=== PATIENT | female | born 1990 | race American Indian/Alaskan Native ===

== ENCOUNTER 2017-02-27 07:31 | Emergency (ER) | payer MEDICAID ==
[2017-02-27 07:39] VITALS: BP 113/71
--- NOTE | 2017-02-27 07:46 | Emergency Department Report ---
- General Chief Complaint: Upper Respiratory Infection Stated Complaint: COLD Time Seen by Provider: 02/27/17 07:44 Source: patient Mode of arrival: Ambulatory Limitations: No Limitations - History of Present Illness Initial Comments: 26-year-old female past medical history none presents with complaint of one month of runny nose, clear rhinorrhea, nasal congestion, scratchy throat, cough. This episode has gotten particularly uncomfortable this week. Patient denies fever chills no chest pain no shortness of breath no nausea no vomiting no abdominal pain reported. Patient is alert and oriented 3 not in acute distress speaking in full sentences no audible stridor no audible wheezing on clinical exam. Patient is cooperative and able to follow all commands without any difficulty. Patient states she has not taken any medicines over-the- counter to relieve her symptoms. MD Complaint: rhinorrhea, nasal congestion, sinus pain Onset/Timin -: week(s) Severity: moderate Consistency: constant Associated Symptoms: rhinorrhea, nasal congestion, sore throat, cough Treatments Prior to Arrival: none - Related Data Previous Rx's Medication Instructions Recorded Last Taken Type Azelastine 0.1% (Nf) [Astelin (Nf)] 137 mcg NS QDAY PRN #1 bottle 02/27/17 Unknown Rx Fluticasone [Flonase] 1 spray NS QDAY PRN #1 bottle 02/27/17 Unknown Rx Loratadine [Claritin] 10 mg PO DAILY #30 tablet 02/27/17 Unknown Rx Naproxen [Naproxen TAB] 250 mg PO BID PRN #20 tablet 02/27/17 Unknown Rx guaiFENesin DM [Robitussin Dm] 10 ml PO Q6HR PRN #1 bottle 02/27/17 Unknown Rx Allergies Allergy/AdvReac Type Severity Reaction Status Date / Time No Known Allergies Allergy Verified 02/27/17 07:36 ED Review of Systems ROS: Stated complaint: COLD Other details as noted in HPI Constitutional: denies: chills, fever Eyes: denies: eye pain, eye discharge, vision change ENT: throat pain, congestion. denies: ear pain Respiratory: cough. denies: shortness of breath, wheezing Cardiovascular: denies: chest pain, palpitations Endocrine: no symptoms reported Gastrointestinal: denies: abdominal pain, nausea, diarrhea Genitourinary: denies: urgency, dysuria, discharge Musculoskeletal: denies: back pain, joint swelling, arthralgia Skin: denies: rash, lesions Neurological: denies: headache, weakness, paresthesias Psychiatric: denies: anxiety, depression Hematological/Lymphatic: denies: easy bleeding, easy bruising ED Past Medical Hx - Past Medical History Previous Medical History?: No Hx Hypertension: No Hx CVA: No Hx Heart Attack/AMI: No Hx Congestive Heart Failure: No Hx Diabetes: No Hx Deep Vein Thrombosis: No Hx Pulmonary Embolism: No Hx GERD: No Hx Liver Disease: No Hx Renal Disease: No Hx Sickle Cell Disease: No Hx Arthritis: No Hx Headaches / Migraines: No Hx Seizures: No Hx Kidney Stones: No Hx Psychiatric Treatment: No Hx Asthma: No Hx COPD: No Hx Tuberculosis: No Hx Dementia: No Hx HIV: No Additional medical history: Ab1 - Surgical History Past Surgical History?: No Hx Coronary Stent: No Hx Open Heart Surgery: No Hx Pacemaker: No Hx Internal Defibrillator: No Hx Cholecystectomy: No Hx Appendectomy: No Hx Breast Surgery: No - Social History Smoking Status: Current Some Day Smoker Substance Use Type: None - Medications Home Medications: Home Medications Medication Instructions Recorded Confirmed Last Taken Type Azelastine 0.1% (Nf) [Astelin (Nf)] 137 mcg NS QDAY PRN #1 bottle 02/27/17 Unknown Rx Fluticasone [Flonase] 1 spray NS QDAY PRN #1 bottle 02/27/17 Unknown Rx Loratadine [Claritin] 10 mg PO DAILY #30 tablet 02/27/17 Unknown Rx Naproxen [Naproxen TAB] 250 mg PO BID PRN #20 tablet 02/27/17 Unknown Rx guaiFENesin DM [Robitussin Dm] 10 ml PO Q6HR PRN #1 bottle 02/27/17 Unknown Rx ED Physical Exam - General Limitations: No Limitations General appearance: alert, in no apparent distress - Head Head exam: Present: atraumatic, normocephalic - Eye Eye exam: Present: normal appearance, PERRL, EOMI - ENT ENT exam: Present: mucous membranes moist - Neck Neck exam: Present: normal inspection - Respiratory Respiratory exam: Present: normal lung sounds bilaterally, other (nasal turbinates injected. ). Absent: respiratory distress - Cardiovascular Cardiovascular Exam: Present: regular rate, normal rhythm, normal heart sounds. Absent: systolic murmur, diastolic murmur, rubs, gallop - GI/Abdominal GI/Abdominal exam: Present: soft, normal bowel sounds - Extremities Exam Extremities exam: Present: normal inspection - Back Exam Back exam: Present: normal inspection - Neurological Exam Neurological exam: Present: alert, oriented X3, CN II-XII intact, normal gait - Psychiatric Psychiatric exam: Present: normal affect, normal mood - Skin Skin exam: Present: warm, dry, intact, normal color. Absent: rash ED Course Vital Signs 02/27/17 02/27/17 07:33 08:02 Temperature 97.5 F L Pulse Rate 78 Respiratory 17 18 Rate Blood Pressure 113/71 O2 Sat by Pulse 100 Oximetry ED Medical Decision Making - Medical Decision Making A/P: Allergic rhinitis vs. 1-patient admits that she exhibits these symptoms seasonally, claims that at this time last year she also had very similar constellation of symptoms. Symptoms are consistent with seasonal allergies or allergic rhinitis, will treat symptomatically 2-azelastine nasal spray, Flonase, naproxen when necessary, Claritin, guaifenesin/DM syrup, I encouraged patient to stay well-hydrated. 3-and has no clinical signs of pneumonia and no fever no respiratory distress lung sounds clear on exam, no clinical indication for antibiotics 4-will give patient follow up with primary care doctor Critical care attestation.: If time is entered above; I have spent that time in minutes in the direct care of this critically ill patient, excluding procedure time. ED Disposition Clinical Impression: Allergic rhinitis due to pollen Qualifiers: Allergic rhinitis seasonality: seasonal Qualified Code(s): J30.1 - Allergic rhinitis due to pollen Disposition: DISCHARGED TO HOME OR SELFCARE Is pt being admited?: No Does the pt Need Aspirin: No Condition: Stable Instructions: Allergic Rhinitis (ED), Allergies (ED) Prescriptions: Azelastine 0.1% (Nf) [Astelin (Nf)] 137 mcg NS QDAY PRN #1 bottle PRN Reason: Nasal Congestion Fluticasone [Flonase] 1 spray NS QDAY PRN #1 bottle PRN Reason: Nasal Congestion guaiFENesin DM [Robitussin Dm] 10 ml PO Q6HR PRN #1 bottle PRN Reason: Cough Loratadine [Claritin] 10 mg PO DAILY #30 tablet Naproxen [Naproxen TAB] 250 mg PO BID PRN #20 tablet PRN Reason: Congestion Referrals: [facility] [Outside] - 3-5 Days [facility] [Provider Group] - 3-5 Days FRAN LECHUGA MD [Staff Physician] - 3-5 Days Forms: Work/School Release Form(ED) Time of Disposition: 08:16
[2017-02-27] MEDS ORDERED: MOTRIN PO ONE (07:58)
== END 2017-02-27 08:24 | disposition home or self-care (01) ==
LOC: ED 07:31
DX: J30.1 Allergic rhinitis due to pollen (principal); Z72.0 Tobacco use
CPT/HCPCS: 99282

== ENCOUNTER 2017-04-16 18:52 | Emergency (ER) | payer MEDICAID ==
[2017-04-16 21:40] LABS: Basophils % (Auto) 1.1 % (0.0-1.8); Eosinophils % (Auto) 3.9 % (0.0-4.3); Hematocrit 34.5 % (30.3-42.9); Hemoglobin 10.7 gm/dl (10.1-14.3); Mean Corpuscular HGB Conc 31 % (30-34); Mean Corpuscular Volume 76 fl (79-97); Platelet Count 217 K/mm3 (140-440); Red Blood Count 4.51 M/mm3 (3.65-5.03); Red Cell Distribution Width 17.9 % (13.2-15.2); White Blood Count 5.5 K/mm3 (4.5-11.0)
[2017-04-16 21:43] LABS: Mean Corpuscular Hemoglobin 24 pg (28-32)
[2017-04-16 21:55] LABS: Bilirubin,Urine NEG (Negative); Blood,Urine NEG (Negative); Ketones,Urine NEG (Negative); Leukocyte Esterase,Urine NEG (Negative); Mucus,Urine 1+ /HPF; Nitrite,Urine NEG (Negative); Protein,Urine <15 mg/dL mg/dL (Negative)
[2017-04-16 22:00] LABS: Anion Gap 17 mmol/L; Blood Urea Nitrogen 6 mg/dL (7-17); Calcium 8.7 mg/dL (8.4-10.2); Carbon Dioxide 22 mmol/L (22-30); Chloride 102.8 mmol/L (98-107); Glucose 104 mg/dL (65-100); Potassium 3.6 mmol/L (3.6-5.0); Sodium 138 mmol/L (137-145)
--- NOTE | 2017-04-16 23:56 | Emergency Department Report ---
ED General Adult HPI - General Chief complaint: Medical Clearance Stated complaint: NOT COMING ON CYCLE/ALWAYS TIRED Time Seen by Provider: 04/16/17 23:45 Source: patient, RN notes reviewed, old records reviewed Mode of arrival: Ambulatory Limitations: No Limitations - History of Present Illness Initial comments: This is a 26-year-old female. She is previously unknown to me. The patient presents to the ER complaining of painless fatigue. The patient indicates that she has not had her menstruation on a regular basis. She denies headache, neck pain, chest pain, abdominal pain, shortness of breath, vaginal bleeding, irritative, urinary symptoms. in The ER, the patient is found to be through urinalysis. A bedside ultrasound demonstrates an intrauterine , with a heartbeat. The patient is tolerating liquid feeds, and in no distress with no other complaints. The patient is counseled to follow up with her outpatient SAFEKEEPING CLERK, to start care. The patient is discharged with vitamins, and as needed nausea medications. -: Gradual Consistency: constant Improves with: none Worsens with: none Associated Symptoms: malaise, weakness. denies: confusion, chest pain, cough, diaphoresis, fever/chills, headaches, loss of appetite, nausea/vomiting, shortness of breath, syncope - Related Data Previous Rx's Medication Instructions Recorded Last Taken Type Azelastine 0.1% (Nf) [Astelin (Nf)] 137 mcg NS QDAY PRN #1 bottle 02/27/17 Unknown Rx Fluticasone [Flonase] 1 spray NS QDAY PRN #1 bottle 02/27/17 Unknown Rx Loratadine [Claritin] 10 mg PO DAILY #30 tablet 02/27/17 Unknown Rx Naproxen [Naproxen TAB] 250 mg PO BID PRN #20 tablet 02/27/17 Unknown Rx guaiFENesin DM [Robitussin Dm] 10 ml PO Q6HR PRN #1 bottle 02/27/17 Unknown Rx Doxylamine/Pyridoxine HCl 1 each PO QHS PRN #30 tablet. 04/17/17 Unknown Rx [Liane Olivarez 10-10 mg Tablet] Vit W-Ca,Fe,FA(<1 mg) 1 each PO QDAY #30 tablet 04/17/17 Unknown Rx [ Vitamins] Allergies Allergy/AdvReac Type Severity Reaction Status Date / Time No Known Allergies Allergy Verified 02/27/17 07:36 ED Review of Systems ROS: Stated complaint: NOT COMING ON CYCLE/ALWAYS TIRED Other details as noted in HPI Constitutional: denies: fever Eyes: denies: vision change ENT: denies: epistaxis Respiratory: denies: cough Cardiovascular: denies: chest pain Gastrointestinal: denies: abdominal pain Genitourinary: abnormal menses. denies: urgency, dysuria, frequency Musculoskeletal: denies: back pain Skin: denies: lesions Neurological: denies: headache Psychiatric: as per HPI ED Past Medical Hx - Past Medical History Previous Medical History?: No Hx Hypertension: No Hx CVA: No Hx Heart Attack/AMI: No Hx Congestive Heart Failure: No Hx Diabetes: No Hx Deep Vein Thrombosis: No Hx Pulmonary Embolism: No Hx GERD: No Hx Liver Disease: No Hx Renal Disease: No Hx Sickle Cell Disease: No Hx Arthritis: No Hx Headaches / Migraines: No Hx Seizures: No Hx Kidney Stones: No Hx Psychiatric Treatment: No Hx Asthma: No Hx COPD: No Hx Tuberculosis: No Hx Dementia: No Hx HIV: No Additional medical history: Ab1 - Surgical History Past Surgical History?: No Hx Coronary Stent: No Hx Open Heart Surgery: No Hx Pacemaker: No Hx Internal Defibrillator: No Hx Cholecystectomy: No Hx Appendectomy: No Hx Breast Surgery: No - Social History Smoking Status: Never Smoker Substance Use Type: None - Medications Home Medications: Home Medications Medication Instructions Recorded Confirmed Last Taken Type Azelastine 0.1% (Nf) [Astelin (Nf)] 137 mcg NS QDAY PRN #1 bottle 02/27/17 Unknown Rx Fluticasone [Flonase] 1 spray NS QDAY PRN #1 bottle 02/27/17 Unknown Rx Loratadine [Claritin] 10 mg PO DAILY #30 tablet 02/27/17 Unknown Rx Naproxen [Naproxen TAB] 250 mg PO BID PRN #20 tablet 02/27/17 Unknown Rx guaiFENesin DM [Robitussin Dm] 10 ml PO Q6HR PRN #1 bottle 02/27/17 Unknown Rx Doxylamine/Pyridoxine HCl 1 each PO QHS PRN #30 tablet. 04/17/17 Unknown Rx [Liane Olivarez 10-10 mg Tablet] Vit W-Ca,Fe,FA(<1 mg) 1 each PO QDAY #30 tablet 04/17/17 Unknown Rx [ Vitamins] ED Physical Exam - General Limitations: No Limitations General appearance: alert, in no apparent distress - Head Head exam: Present: atraumatic, normocephalic - Eye Eye exam: Present: normal appearance, EOMI. Absent: nystagmus - ENT ENT exam: Present: normal exam, normal orophraynx, mucous membranes moist, normal external ear exam - Neck Neck exam: Present: normal inspection, full ROM. Absent: tenderness, meningismus - Respiratory Respiratory exam: Present: normal lung sounds bilaterally. Absent: respiratory distress, wheezes, rales, rhonchi, stridor, chest wall tenderness, accessory muscle use, decreased breath sounds, prolonged expiratory - Cardiovascular Cardiovascular Exam: Present: regular rate, normal rhythm, normal heart sounds. Absent: bradycardia, tachycardia, irregular rhythm, systolic murmur, diastolic murmur, rubs, gallop - GI/Abdominal GI/Abdominal exam: Present: soft, normal bowel sounds. Absent: distended, tenderness, guarding, rebound, rigid, pulsatile mass - Extremities Exam Extremities exam: Present: normal inspection, full ROM, normal capillary refill. Absent: tenderness, pedal edema, joint swelling, calf tenderness - Back Exam Back exam: Present: normal inspection, full ROM. Absent: tenderness, CVA tenderness (R), CVA tenderness (L), muscle spasm, paraspinal tenderness, vertebral tenderness - Neurological Exam Neurological exam: Present: alert, oriented X3, normal gait, other (Extraocular movements intact. Tongue midline. No facial droop. Facial sensation intact to light touch in the V1, V2, V3 distribution bilaterally. 5 and 5 strength in 4 extremities.. Sensation is intact to light touch in 4 extremities.). Absent : motor sensory deficit - Psychiatric Psychiatric exam: Present: normal affect, normal mood - Skin Skin exam: Present: warm, dry, intact, normal color. Absent: rash ED Course Vital Signs 04/16/17 04/16/17 21:13 23:56 Temperature 97.2 F L Pulse Rate 65 81 Respiratory 18 16 Rate Blood Pressure 94/61 Blood Pressure 115/69 [Right] O2 Sat by Pulse 100 100 Oximetry - Reevaluation(s) Reevaluation #1: 04/17/17 00:48 differential diagnosis: Incidental Assessment and plan: 26-year-old female with incidental . It is confirmed through bedside ultrasound. She is afebrile, with no other acute complaints, tolerating liquid feeds, with no abdominal tenderness, rebound, guarding. The patient appears quite comfortable, and is playing in a cell phone. The patient will be initiated on vitamins, as needed nausea medication. Patient instructed to follow up with outpatient gynecology. ED Medical Decision Making - Lab Data Result diagrams: 04/16/17 21:22 04/16/17 21:22 Vital Signs 04/16/17 04/16/17 21:13 23:56 Temperature 97.2 F L Pulse Rate 65 81 Respiratory 18 16 Rate Blood Pressure 94/61 Blood Pressure 115/69 [Right] O2 Sat by Pulse 100 100 Oximetry Lab Results 04/16/17 04/16/17 04/16/17 Range/Units 21:22 21:22 21:30 WBC 5.5 (4.5-11.0) K/mm3 RBC 4.51 (3.65-5.03) M/mm3 Hgb 10.7 (10.1-14.3) gm/dl Hct 34.5 (30.3-42.9) % MCV 76 L (79-97) fl MCH 24 L (28-32) pg MCHC 31 (30-34) % RDW 17.9 H (13.2-15.2) % Plt Count 217 (140-440) K/mm3 Lymph % (Auto) 33.5 (13.4-35.0) % Emery % (Auto) 11.3 H (0.0-7.3) % Eos % (Auto) 3.9 (0.0-4.3) % Baso % (Auto) 1.1 (0.0-1.8) % Lymph # 1.8 (1.2-5.4) K/mm3 Emery # 0.6 (0.0-0.8) K/mm3 Eos # 0.2 (0.0-0.4) K/mm3 Baso # 0.1 (0.0-0.1) K/mm3 Seg Neutrophils % 50.2 (40.0-70.0) % Seg Neutrophils # 2.8 (1.8-7.7) K/mm3 Sodium 138 (137-145) mmol/L Potassium 3.6 (3.6-5.0) mmol/L Chloride 102.8 (98-107) mmol/L Carbon Dioxide 22 (22-30) mmol/L Anion Gap 17 mmol/L BUN 6 L (7-17) mg/dL Creatinine 0.6 L (0.7-1.2) mg/dL Estimated GFR > 60 ml/min BUN/Creatinine Ratio 10.00 % Glucose 104 H (65-100) mg/dL Calcium 8.7 (8.4-10.2) mg/dL Urine Color Yellow (Yellow) Urine Turbidity Clear (Clear) Urine pH 5.0 (5.0-7.0) Ur Specific [place] 1.023 (1.003-1.030) Urine Protein <15 mg/dl (Negative) mg/dL Urine Glucose (UA) Neg (Negative) mg/dL Urine Ketones Neg (Negative) mg/dL Urine Blood Neg (Negative) Urine Nitrite Neg (Negative) Urine Bilirubin Neg (Negative) Urine Urobilinogen 2.0 (<2.0) mg/dL Ur Leukocyte Esterase Neg (Negative) Urine WBC (Auto) 1.0 (0.0-6.0) /HPF Urine RBC (Auto) 2.0 (0.0-6.0) /HPF U Epithel Cells (Auto) 4.0 (0-13.0) /HPF Urine Mucus 1+ /HPF Urine HCG, Qual Positive A (Negative) Critical care attestation.: If time is entered above; I have spent that time in minutes in the direct care of this critically ill patient, excluding procedure time. ED Disposition Clinical Impression: Disposition: DISCHARGED TO HOME OR SELFCARE Is pt being admited?: No Does the pt Need Aspirin: No Condition: Stable Instructions: (ED) Additional Instructions: Take the medications as directed. Follow up with an SAFEKEEPING CLERK doctor as soon as possible to initiate care. Avoid consumption of alcohol, Motrin, ibuprofen, aspirin, Aleve. Return to the ER right away with fevers, chills, severe abdominal pain, vaginal bleeding, nausea, vomiting, inability to tolerate liquid feeds, chest pain, shortness of breath, change in mental status, confusion. Prescriptions: Doxylamine/Pyridoxine HCl [Liane Olivarez 10-10 mg Tablet] 1 each PO QHS PRN #30 tablet.dr PRN Reason: Nausea Vit W-Ca,Fe,FA(<1 mg) [ Vitamins] 1 each PO QDAY #30 tablet Referrals: [facility] [Provider Group] - 3-5 Days [facility] [Provider Group[facility] - 3-5 Days [facility] [Provider Group] - 3-5 Days
[2017-04-16 23:57] VITALS: BP 115/69
== END 2017-04-17 00:30 | disposition home or self-care (01) ==
LOC: ED 18:52
DX: O26.891 Other specified pregnancy related conditions, first trimester (principal); R53.83 Other fatigue; Z3A.01 Less than 8 weeks gestation of pregnancy
CPT/HCPCS: 36415; 80048; 81001; 81025; 85025; 99283

== ENCOUNTER 2017-10-10 21:45 | Outpatient (CLI) | payer MEDICAID ==
[2017-10-10 22:23] VITALS: BP 106/60
[2017-10-10] MEDS ORDERED: LACTATED RINGERS 1,000 ML IV ONE (22:30)
[2017-10-10 23:26] LABS: Bacteria,Urine 2+ /HPF (Negative); Bilirubin,Urine NEG (Negative); Blood,Urine NEG (Negative); Ketones,Urine NEG (Negative); Leukocyte Esterase,Urine LG (Negative); Mucus,Urine 1+ /HPF; Nitrite,Urine NEG (Negative)
== END 2017-10-11 00:25 | disposition home or self-care (01) ==
LOC: TRG 21:45
PROVIDERS: ATTEND Obstetrics & Gynecology
DX: O99.333 Smoking (tobacco) complicating pregnancy, third trimester (principal); O47.03 False labor before 37 completed weeks of gestation, third trimester; Z3A.31 31 weeks gestation of pregnancy
CPT/HCPCS: 59025; 81001; 96360; 96361; J7120

== ENCOUNTER 2018-01-11 22:12 | Emergency (ER) | payer MEDICAID ==
[2018-01-11 23:30] VITALS: BP 113/81
[2018-01-11] MEDS ORDERED: BENADRYL PO ONE (23:34)
[2018-01-11] MEDS ORDERED: PEPCID PO ONE (23:34)
[2018-01-11] MEDS ORDERED: DELTASONE PO ONE (23:35)
--- NOTE | 2018-01-12 03:11 | Emergency Department Report ---
ED Allergic Reaction HPI - General Chief complaint: Allergic Reaction Stated complaint: RASH,HIVES ALL OVER BODY Time Seen by Provider: 01/12/18 03:03 Source: patient Mode of arrival: Ambulatory Limitations: No Limitations - History of Present Illness Initial Comments: This is a 27 y.o. female presents with hives from chest down since last night. She took a bath with [place] soap and began to itch. She noticed bumps on hands originally, then they started spreading. They are all over body except neck and face. She didn't take anything at home. Denies difficulty swallowing, drooling, swelling, SOB, chest pain or palpitations. MD Complaint: allergic reaction, hives (generalized, expect face and neck) -: Last night Exposure: other ([place] soap) Symptoms: rash, itching. denies: facial swelling, lip swelling, difficulty swallowing, difficulty breathing, orolingual swelling, hoarseness, syncopy, dizziness, nausea, vomiting, abdominal pain Severity: moderate Treatment Prior to Arrival: none Previous Allergy History: none - Related Data Previous Rx's Medication Instructions Recorded Last Taken Type Azelastine 0.1% (Nf) [Astelin (Nf)] 137 mcg NS QDAY PRN #1 bottle 02/27/17 Unknown Rx Fluticasone [Flonase] 1 spray NS QDAY PRN #1 bottle 02/27/17 Unknown Rx Loratadine [Claritin] 10 mg PO DAILY #30 tablet 02/27/17 Unknown Rx Naproxen [Naproxen TAB] 250 mg PO BID PRN #20 tablet 02/27/17 Unknown Rx guaiFENesin DM [Robitussin Dm] 10 ml PO Q6HR PRN #1 bottle 02/27/17 Unknown Rx Doxylamine Succinate/Vit B6 1 each PO QHS PRN #30 tablet. 04/17/17 Unknown Rx [Liane Olivarez 10-10 mg Tablet] Vit Calc,Iron,Folic 1 each PO QDAY #30 tablet 04/17/17 Unknown Rx [ Vitamins] diphenhydrAMINE [Benadryl CAP] 25 mg PO Q6HR PRN #15 tab 01/12/18 Unknown Rx predniSONE [Deltasone] 40 mg PO QDAY #6 tab 01/12/18 Unknown Rx Allergies Allergy/AdvReac Type Severity Reaction Status Date / Time No Known Allergies Allergy Verified 02/27/17 07:36 ED Review of Systems ROS: Stated complaint: RASH,HIVES ALL OVER BODY Other details as noted in HPI Constitutional: denies: chills, fever Respiratory: denies: cough, shortness of breath, wheezing Cardiovascular: denies: chest pain, palpitations Gastrointestinal: denies: abdominal pain, nausea, diarrhea Skin: rash (everywhere except neck and face). denies: lesions, change in color , change in hair/nails, pruritus Neurological: denies: headache, weakness, paresthesias ED Past Medical Hx - Past Medical History Hx Hypertension: No Hx CVA: No Hx Heart Attack/AMI: No Hx Congestive Heart Failure: No Hx Diabetes: No Hx Deep Vein Thrombosis: No Hx Pulmonary Embolism: No Hx GERD: No Hx Liver Disease: No Hx Renal Disease: No Hx Sickle Cell Disease: No Hx Arthritis: No Hx Headaches / Migraines: No Hx Seizures: No Hx Kidney Stones: No Hx Psychiatric Treatment: No Hx Asthma: No Hx COPD: No Hx Tuberculosis: No Hx Dementia: No Hx HIV: No Additional medical history: Ab1, Seasonal Allergies - Surgical History Past Surgical History?: Yes Hx Coronary Stent: No Hx Open Heart Surgery: No Hx Pacemaker: No Hx Internal Defibrillator: No Hx Cholecystectomy: No Hx Appendectomy: No Hx Breast Surgery: No - Social History Smoking Status: Former Smoker Substance Use Type: None - Medications Home Medications: Home Medications Medication Instructions Recorded Confirmed Last Taken Type Azelastine 0.1% (Nf) [Astelin (Nf)] 137 mcg NS QDAY PRN #1 bottle 02/27/17 Unknown Rx Fluticasone [Flonase] 1 spray NS QDAY PRN #1 bottle 02/27/17 Unknown Rx Loratadine [Claritin] 10 mg PO DAILY #30 tablet 02/27/17 Unknown Rx Naproxen [Naproxen TAB] 250 mg PO BID PRN #20 tablet 02/27/17 Unknown Rx guaiFENesin DM [Robitussin Dm] 10 ml PO Q6HR PRN #1 bottle 02/27/17 Unknown Rx Doxylamine Succinate/Vit B6 1 each PO QHS PRN #30 tablet. 04/17/17 Unknown Rx [Liane Olivarez 10-10 mg Tablet] Vit Calc,Iron,Folic 1 each PO QDAY #30 tablet 04/17/17 Unknown Rx [ Vitamins] diphenhydrAMINE [Benadryl CAP] 25 mg PO Q6HR PRN #15 tab 01/12/18 Unknown Rx predniSONE [Deltasone] 40 mg PO QDAY #6 tab 01/12/18 Unknown Rx ED Physical Exam - General Limitations: No Limitations General appearance: alert, in no apparent distress - ENT ENT exam: Present: normal exam - Respiratory Respiratory exam: Present: normal lung sounds bilaterally. Absent: respiratory distress - Cardiovascular Cardiovascular Exam: Present: regular rate, normal rhythm. Absent: systolic murmur, diastolic murmur, rubs, gallop - GI/Abdominal GI/Abdominal exam: Present: soft, normal bowel sounds - Neurological Exam Neurological exam: Present: alert, oriented X3, normal gait - Skin Skin exam: Present: warm, dry, intact, normal color, erythema, urticaria ( erthematous, BUE, BLE). Absent: cyanosis, diaphoretic, vesicles, petechiae, abrasion, ecchymosis ED Course Vital Signs 01/11/18 23:24 Temperature 98 F Pulse Rate 82 Respiratory 16 Rate Blood Pressure 113/81 O2 Sat by Pulse 96 Oximetry ED Medical Decision Making - Medical Decision Making This is a 27 y.o. female presents with urticaria rash from trunk down since last night. Denies difficulty breathing, SOB, chest pain, or palpitations. Allergy to [place] soap. Patient was examined by me. Given prednisone 40 mg po once, pepcid 20 mg po once, and benadryl 25 mg po once. Patient is feeling better and rash improved. Physical examination susceptible of allergic contact dermatitis. Discussed plan to treat outpatient. Discharged home in stable condition. Start benadryl and prednisone. Discussed prevention options. F /U with PCP. Critical care attestation.: If time is entered above; I have spent that time in minutes in the direct care of this critically ill patient, excluding procedure time. ED Disposition Clinical Impression: Urticaria Allergic contact dermatitis Qualifiers: Contact dermatitis trigger: other chemical product Qualified Code(s): L23.5 - Allergic contact dermatitis due to other chemical products Disposition: DC-01 TO HOME OR SELFCARE Is pt being admited?: No Does the pt Need Aspirin: No Condition: Stable Instructions: Urticaria (ED), Contact Dermatitis (ED) Additional Instructions: Avoid using [place] soap. Continue taking benadryl to control itching and spread of rash. Don't drive or operate heavy machinery while taking benadryl. Follow up with [employer] dispatcher or primary care provider if symptoms don't improve in 2 days. Prescriptions: diphenhydrAMINE [Benadryl CAP] 25 mg PO Q6HR PRN #15 tab PRN Reason: Allergic Reaction predniSONE [Deltasone] 40 mg PO QDAY #6 tab Referrals: [facility] [Outside] - 3-5 Days [facility] [Outside] - 3-5 Days [facility] [Outside] - 3-5 Days Time of Disposition: 03:29 Print Language: PUERTO RICAN
== END 2018-01-12 03:57 | disposition home or self-care (01) ==
LOC: ED 22:12
DX: L50.9 Urticaria, unspecified (principal); L23.5 Allergic contact dermatitis due to other chemical products; Z87.891 Personal history of nicotine dependence
CPT/HCPCS: 99282; J7512

== ENCOUNTER 2018-08-14 11:48 | Emergency (ER) | payer SELFPAY ==
[2018-08-14 12:07] VITALS: BP 101/63
[2018-08-14 13:06] LABS: Bacteria,Urine 1+ /HPF (Negative); Bilirubin,Urine NEG (Negative); Blood,Urine NEG (Negative); Color,Urine Yellow (Yellow); Mucus,Urine 2+ /HPF; Protein,Urine <15 mg/dL mg/dL (Negative)
[2018-08-14 13:09] LABS: HCG Qualitative,Urine Positive (Negative)
--- NOTE | 2018-08-14 16:16 | Emergency Department Report ---
ED Abdominal Pain HPI - General Chief Complaint: Abdominal Pain Stated Complaint: PAIN Time Seen by Provider: 08/14/18 15:12 Source: patient Mode of arrival: Ambulatory Limitations: No Limitations - History of Present Illness Initial Comments: This is a 27-year-old female who presents with abdominal pain and vaginal bleeding for 3 weeks. Patient reports abdominal pain as a cramping sensation to lower pelvic area. Last menstrual period was 05/11/2018, A1. Patient states she is spotting intermittently for 1 week. Vaginal bleeding is light and brown. She has not taken a home test. She is also complaining of nausea and vomiting for 2-3 weeks. Patient denies fever, chest pain, dysuria, frequency, urgency, or discharge. MD Complaint: abdominal pain Onset/Timin -: week(s) Location: suprapubic Radiation: none Migration to: no migration Severity: moderate Severity scale (0 -10): 6 Quality: cramping Consistency: intermittent Improves With: nothing Worsens With: nothing Associated Symptoms: nausea, vomiting. denies: diarrhea, fever, chills, constipation, dysuria, hematemesis, hematochezia, melena, hematuria, anorexia, syncope - Related Data LMP Date: 05/11/18 Previous Rx's Medication Instructions Recorded Last Taken Type Azelastine 0.1% (Nf) [Astelin (Nf)] 137 mcg NS QDAY PRN #1 bottle 02/27/17 Unknown Rx Fluticasone [Flonase] 1 spray NS QDAY PRN #1 bottle 02/27/17 Unknown Rx Loratadine [Claritin] 10 mg PO DAILY #30 tablet 02/27/17 Unknown Rx Naproxen [Naproxen TAB] 250 mg PO BID PRN #20 tablet 02/27/17 Unknown Rx guaiFENesin DM [Robitussin Dm] 10 ml PO Q6HR PRN #1 bottle 02/27/17 Unknown Rx Doxylamine Succinate/Vit B6 1 each PO QHS PRN #30 tablet. 04/17/17 Unknown Rx [Liane Olivarez 10-10 mg Tablet] Vit Calc,Iron,Folic 1 each PO QDAY #30 tablet 04/17/17 Unknown Rx [ Vitamins] diphenhydrAMINE [Benadryl CAP] 25 mg PO Q6HR PRN #15 tab 01/12/18 Unknown Rx predniSONE [Deltasone] 40 mg PO QDAY #6 tab 01/12/18 Unknown Rx 21/Iron Fu/Folic Acid 1 each PO DAILY #30 tablet 08/14/18 Unknown Rx [ Complete Caplet] Allergies Allergy/AdvReac Type Severity Reaction Status Date / Time No Known Allergies Allergy Verified 02/27/17 07:36 ED Review of Systems ROS: Stated complaint: PAIN Other details as noted in HPI Constitutional: denies: chills, fever Respiratory: denies: cough, shortness of breath, wheezing Cardiovascular: denies: chest pain, palpitations Gastrointestinal: abdominal pain, nausea, vomiting. denies: diarrhea, hematochezia Genitourinary: other (light vaginal bleeding). denies: urgency, dysuria, discharge Musculoskeletal: denies: back pain, joint swelling, arthralgia Neurological: denies: headache, weakness, paresthesias Psychiatric: denies: anxiety, depression ED Past Medical Hx - Past Medical History Hx Hypertension: No Hx CVA: No Hx Heart Attack/AMI: No Hx Congestive Heart Failure: No Hx Diabetes: No Hx Deep Vein Thrombosis: No Hx Pulmonary Embolism: No Hx GERD: No Hx Liver Disease: No Hx Renal Disease: No Hx Sickle Cell Disease: No Hx Arthritis: No Hx Headaches / Migraines: No Hx Seizures: No Hx Kidney Stones: No Hx Psychiatric Treatment: No Hx Asthma: No Hx COPD: No Hx Tuberculosis: No Hx Dementia: No Hx HIV: No Additional medical history: Ab1, Seasonal Allergies - Surgical History Hx Coronary Stent: No Hx Open Heart Surgery: No Hx Pacemaker: No Hx Internal Defibrillator: No Hx Cholecystectomy: No Hx Appendectomy: No Hx Breast Surgery: No - Social History Smoking Status: Never Smoker Substance Use Type: None - Medications Home Medications: Home Medications Medication Instructions Recorded Confirmed Last Taken Type Azelastine 0.1% (Nf) [Astelin (Nf)] 137 mcg NS QDAY PRN #1 bottle 02/27/17 Unknown Rx Fluticasone [Flonase] 1 spray NS QDAY PRN #1 bottle 02/27/17 Unknown Rx Loratadine [Claritin] 10 mg PO DAILY #30 tablet 02/27/17 Unknown Rx Naproxen [Naproxen TAB] 250 mg PO BID PRN #20 tablet 02/27/17 Unknown Rx guaiFENesin DM [Robitussin Dm] 10 ml PO Q6HR PRN #1 bottle 02/27/17 Unknown Rx Doxylamine Succinate/Vit B6 1 each PO QHS PRN #30 tablet. 04/17/17 Unknown Rx [Liane Olivarez 10-10 mg Tablet] Vit Calc,Iron,Folic 1 each PO QDAY #30 tablet 04/17/17 Unknown Rx [ Vitamins] diphenhydrAMINE [Benadryl CAP] 25 mg PO Q6HR PRN #15 tab 01/12/18 Unknown Rx predniSONE [Deltasone] 40 mg PO QDAY #6 tab 01/12/18 Unknown Rx 21/Iron Fu/Folic Acid 1 each PO DAILY #30 tablet 08/14/18 Unknown Rx [ Complete Caplet] ED Physical Exam - General Limitations: No Limitations General appearance: alert, in no apparent distress - Respiratory Respiratory exam: Present: normal lung sounds bilaterally. Absent: respiratory distress - Cardiovascular Cardiovascular Exam: Present: regular rate, normal rhythm. Absent: systolic murmur, diastolic murmur, rubs, gallop - GI/Abdominal GI/Abdominal exam: Present: soft, tenderness (mild suprapubic tenderness), normal bowel sounds. Absent: distended, guarding, rebound, rigid, organomegaly , mass - Back Exam Back exam: Present: normal inspection - Neurological Exam Neurological exam: Present: alert, oriented X3 - Psychiatric Psychiatric exam: Present: normal affect, normal mood - Skin Skin exam: Present: warm, dry, intact, normal color. Absent: rash ED Course Vital Signs 08/14/18 12:02 Temperature 98.9 F Pulse Rate 99 H Respiratory 16 Rate Blood Pressure 101/63 O2 Sat by Pulse 96 Oximetry ED Medical Decision Making - Lab Data Result diagrams: 08/14/18 16:49 Lab Results 08/14/18 08/14/18 08/14/18 Range/Units 12:35 16:49 16:49 WBC 5.4 (4.5-11.0) K/mm3 RBC 4.44 (3.65-5.03) M/mm3 Hgb 11.7 (10.1-14.3) gm/dl Hct 36.8 (30.3-42.9) % MCV 83 (79-97) fl MCH 26 L (28-32) pg MCHC 32 (30-34) % RDW 16.3 H (13.2-15.2) % Plt Count 189 (140-440) K/mm3 HCG, Quant 15372 H (0-4) mIU/mL Urine Color Yellow (Yellow) Urine Turbidity Cloudy (Clear) Urine pH 5.0 (5.0-7.0) Ur Specific [place] 1.020 (1.003-1.030) Urine Protein <15 mg/dl (Negative) mg/dL Urine Glucose (UA) Neg (Negative) mg/dL Urine Ketones Neg (Negative) mg/dL Urine Blood Neg (Negative) Urine Nitrite Neg (Negative) Urine Bilirubin Neg (Negative) Urine Urobilinogen 2.0 (<2.0) mg/dL Ur Leukocyte Esterase Neg (Negative) Urine WBC (Auto) 2.0 (0.0-6.0) /HPF Urine RBC (Auto) 3.0 (0.0-6.0) /HPF U Epithel Cells (Auto) 23.0 H (0-13.0) /HPF Urine Bacteria (Auto) 1+ (Negative) /HPF Urine Mucus 2+ /HPF Urine HCG, Qual Positive A (Negative) - Radiology Data Radiology results: report reviewed, image reviewed FINAL REPORT EXAM: US OB TRANSVAGINAL HISTORY: abdominal pain, comfirmed TECHNIQUE: Grayscale, color flow and M-mode imaging of the pelvis was performed. Comparison: Transabdominal study also performed today FINDINGS: There is demonstration of an intrauterine gestational sac with yolk sac and pole. Estimated gestational age by measurements of crown-rump length is 5 weeks 6 days. heart rate is measured at 88 beats per minute. There is a subchorionic hypoechoic avascular collection that measures approximately 1.1 centimeter x 0.2 centimeter x 1.7 centimeter. Probable small subchorionic hemorrhage. The left ovary measures 3.4 centimeters x 1.2 centimeters x 2.8 centimeters and is normal in appearance. Flow is demonstrated in the left ovary utilizing color flow imaging. The right ovary measures 3.4 centimeters x 1.8 centimeters x 2.3 centimeters and is normal appearance. Flow is demonstrated in the right ovary utilizing color flow imaging. No free fluid is demonstrated in the pelvis. IMPRESSION: 1. Demonstration of single living intrauterine gestation with estimated gestational age of 5 weeks 6 days. 2. Small probable subchorionic hemorrhage. - Medical Decision Making Patient was examined by myself in fast track emergency room. Vitals are normal and patient is in no acute distress. Obtained a urinalysis, CBC, hCG quant, and OB ultrasound. All labs unremarkable. 1. Demonstration of single living intrauterine gestation with estimated gestational age of 5 weeks 6 days. 2. Small probable subchorionic hemorrhage. Referral to [facility] for continuance of care. Patient discharged home in stable condition. Critical care attestation.: If time is entered above; I have spent that time in minutes in the direct care of this critically ill patient, excluding procedure time. ED Disposition Clinical Impression: confirmed by positive urine test, Vaginal bleeding affecting early , Threatened miscarriage in early , Nausea and vomiting during Disposition: - TO HOME OR SELFCARE Is pt being admited?: No Does the pt Need Aspirin: No Condition: Stable Instructions: Threatened Miscarriage (ED), (ED), Abdominal Pain (ED) Additional Instructions: Start taking complete vitamins once a day. Follow up with [facility] in 24-48 hours. Return to ER if increased vaginal bleeding, abdominal pain, and low back pain. Prescriptions: 21/Iron Fu/Folic Acid [ Complete Caplet] 1 each PO DAILY #30 tablet Referrals: [facility] [Provider Group] - 3-5 Days [facility] [Provider Group] - 3-5 Days Forms: Work/School Release Form(ED) Time of Disposition: 17:41 Print Language: EQUATORIAL GUINEAN
--- NOTE | 2018-08-14 16:25 | Ultrasound Report ---
FINAL REPORT EXAM: US OB < = 14 WEEKS FETUS HISTORY: abdominal pain, comfirmed TECHNIQUE: Transabdominal grayscale, color flow and M-mode imaging of the pelvis was performed. Comparison: Transvaginal study also performed today FINDINGS: The uterus measures 9.7 centimeters x 5.9 centimeters by 6.3 centimeters. There is demonstration of an intrauterine gestational sac with yolk sac and pole. Estimated gestational age by measurement of crown-rump length is 5 weeks 6 days. heart rate is measured 87 beats per minute. The left ovary measures 3.5 centimeters x 1.6 centimeters x 1.8 centimeters, is normal in appearance and contains follicles. Flow is demonstrated in the left ovary utilizing color flow imaging. The right ovary measures 3.6 centimeters x 1.5 centimeters x 2.3 centimeters, is normal in appearance and contains a probable corpus luteum cyst. Flow is demonstrated in the right ovary utilizing color flow imaging. No free fluid is demonstrated in the pelvis. IMPRESSION: 1. Demonstration of a single living intrauterine gestation with estimated gestational age of 5 weeks 6 days by measurements of crown-rump length Please see report of transvaginal ultrasound also performed today
--- NOTE | 2018-08-14 16:28 | Ultrasound Report ---
FINAL REPORT EXAM: US OB TRANSVAGINAL HISTORY: abdominal pain, comfirmed TECHNIQUE: Grayscale, color flow and M-mode imaging of the pelvis was performed. Comparison: Transabdominal study also performed today FINDINGS: There is demonstration of an intrauterine gestational sac with yolk sac and pole. Estimated gestational age by measurements of crown-rump length is 5 weeks 6 days. heart rate is measured at 88 beats per minute. There is a subchorionic hypoechoic avascular collection that measures approximately 1.1 centimeter x 0.2 centimeter x 1.7 centimeter. Probable small subchorionic hemorrhage. The left ovary measures 3.4 centimeters x 1.2 centimeters x 2.8 centimeters and is normal in appearance. Flow is demonstrated in the left ovary utilizing color flow imaging. The right ovary measures 3.4 centimeters x 1.8 centimeters x 2.3 centimeters and is normal appearance. Flow is demonstrated in the right ovary utilizing color flow imaging. No free fluid is demonstrated in the pelvis. IMPRESSION: 1. Demonstration of single living intrauterine gestation with estimated gestational age of 5 weeks 6 days. 2. Small probable subchorionic hemorrhage.
[2018-08-14 17:13] LABS: Hematocrit 36.8 % (30.3-42.9); Hemoglobin 11.7 gm/dl (10.1-14.3); Mean Corpuscular HGB Conc 32 % (30-34); Mean Corpuscular Hemoglobin 26 pg (28-32); Mean Corpuscular Volume 83 fl (79-97); Platelet Count 189 K/mm3 (140-440); Red Blood Count 4.44 M/mm3 (3.65-5.03); Red Cell Distribution Width 16.3 % (13.2-15.2)
== END 2018-08-14 17:50 | disposition home or self-care (01) ==
LOC: ED 11:48
DX: O20.0 Threatened abortion (principal); O20.9 Hemorrhage in early pregnancy, unspecified; Z3A.01 Less than 8 weeks gestation of pregnancy
CPT/HCPCS: 36415; 76801; 76817; 81001; 81025; 84702; 85027

== ENCOUNTER 2018-08-27 12:56 | Emergency (ER) | payer OTHER ==
[2018-08-27 13:36] VITALS: BP 103/60
--- NOTE | 2018-08-27 14:18 | Emergency Department Report ---
ED Syncope HPI - General Chief Complaint: Medical Clearance Stated Complaint: 5WKS /PASSED OUT Source: patient Exam Limitations: no limitations - History of Present Illness Initial Comments: This is a 27-year-old -[place] female presents for evaluation of syncopal episode this morning. Patient states she passed out around 4:00 this morning. Patient states she laid down after incident. Patient states she currently feels okay. She is 7 weeks' gestation. Patient states she hasn't been seen by [facility] and had a confirmed in this emergency room 2 weeks ago. She reports having a syncopal episode once prior with her first . Patient is A1. Last menstrual period 05/11/2008. Timing/Prior Episodes: other (once with first ) Precipitating Factors: Positive: none Context: standing Episode Description: passed out this morning Loss of Consciousness: no loss of consciousness Current Symptoms: back to normal - Related Data Allergies/Adverse Reactions: Allergies No Known Allergies Allergy (Verified 08/27/18 13:28) Home Medications: Ambulatory Orders Azelastine 0.1% (Nf) [Astelin (Nf)] 137 mcg NS QDAY PRN #1 bottle 02/27/17 Fluticasone [Flonase] 1 spray NS QDAY PRN #1 bottle 02/27/17 Loratadine [Claritin] 10 mg PO DAILY #30 tablet 02/27/17 Naproxen [Naproxen TAB] 250 mg PO BID PRN #20 tablet 02/27/17 guaiFENesin DM [Robitussin Dm] 10 ml PO Q6HR PRN #1 bottle 02/27/17 Doxylamine Succinate/Vit B6 [Liane Olivarez 10-10 mg Tablet] 1 each PO QHS PRN #30 tablet. 04/17/17 Vit Calc,Iron,Folic [ Vitamins] 1 each PO QDAY #30 tablet 04/17 diphenhydrAMINE [Benadryl CAP] 25 mg PO Q6HR PRN #15 tab 01/12/18 predniSONE [Deltasone] 40 mg PO QDAY #6 tab 01/12/18 21/Iron Fu/Folic Acid [ Complete Caplet] 1 each PO DAILY #30 tablet 08/14/18 ED Review of Systems ROS: Stated complaint: 5WKS /PASSED OUT Other details as noted in HPI Constitutional: denies: chills, fever Respiratory: denies: cough, shortness of breath, wheezing Cardiovascular: denies: chest pain, palpitations Gastrointestinal: denies: abdominal pain, nausea, diarrhea Skin: denies: rash, lesions Neurological: denies: headache, weakness, paresthesias Psychiatric: denies: anxiety, depression ED Past Medical Hx - Past Medical History Hx Hypertension: No Hx CVA: No Hx Heart Attack/AMI: No Hx Congestive Heart Failure: No Hx Diabetes: No Hx Deep Vein Thrombosis: No Hx Pulmonary Embolism: No Hx GERD: No Hx Liver Disease: No Hx Renal Disease: No Hx Sickle Cell Disease: No Hx Arthritis: No Hx Headaches / Migraines: No Hx Seizures: No Hx Kidney Stones: No Hx Psychiatric Treatment: No Hx Asthma: No Hx COPD: No Hx Tuberculosis: No Hx Dementia: No Hx HIV: No Additional medical history: Ab1, Seasonal Allergies - Surgical History Hx Coronary Stent: No Hx Open Heart Surgery: No Hx Pacemaker: No Hx Internal Defibrillator: No Hx Cholecystectomy: No Hx Appendectomy: No Hx Breast Surgery: No - Social History Smoking Status: Never Smoker Substance Use Type: None - Medications Home Medications: Home Medications Medication Instructions Recorded Confirmed Last Taken Type Azelastine 0.1% (Nf) [Astelin (Nf)] 137 mcg NS QDAY PRN #1 bottle 02/27/17 Unknown Rx Fluticasone [Flonase] 1 spray NS QDAY PRN #1 bottle 02/27/17 Unknown Rx Loratadine [Claritin] 10 mg PO DAILY #30 tablet 02/27/17 Unknown Rx Naproxen [Naproxen TAB] 250 mg PO BID PRN #20 tablet 02/27/17 Unknown Rx guaiFENesin DM [Robitussin Dm] 10 ml PO Q6HR PRN #1 bottle 02/27/17 Unknown Rx Doxylamine Succinate/Vit B6 1 each PO QHS PRN #30 tablet. 04/17/17 Unknown Rx [Liane Olivarez 10-10 mg Tablet] Vit Calc,Iron,Folic 1 each PO QDAY #30 tablet 04/17/17 Unknown Rx [ Vitamins] diphenhydrAMINE [Benadryl CAP] 25 mg PO Q6HR PRN #15 tab 01/12/18 Unknown Rx predniSONE [Deltasone] 40 mg PO QDAY #6 tab 01/12/18 Unknown Rx 21/Iron Fu/Folic Acid 1 each PO DAILY #30 tablet 08/14/18 Unknown Rx [ Complete Caplet] ED Physical Exam - General Limitations: No Limitations General appearance: alert, in no apparent distress - Respiratory Respiratory exam: Present: normal lung sounds bilaterally. Absent: respiratory distress - Cardiovascular Cardiovascular Exam: Present: regular rate, normal rhythm. Absent: systolic murmur, diastolic murmur, rubs, gallop - GI/Abdominal GI/Abdominal exam: Present: soft, normal bowel sounds - Neurological Exam Neurological exam: Present: alert, oriented X3 - Psychiatric Psychiatric exam: Present: normal affect, normal mood - Skin Skin exam: Present: warm, dry, intact, normal color. Absent: rash ED Course Vital Signs 08/27/18 13:28 Temperature 99.2 F Pulse Rate 64 Respiratory 18 Rate Blood Pressure 103/60 O2 Sat by Pulse 98 Oximetry ED Medical Decision Making - Lab Data Result diagrams: 08/27/18 14:22 08/27/18 14:22 Lab Results 08/27/18 08/27/18 Range/Units 14:22 14:22 WBC 5.5 (4.5-11.0) K/mm3 RBC 4.55 (3.65-5.03) M/mm3 Hgb 12.3 (10.1-14.3) gm/dl Hct 38.4 (30.3-42.9) % MCV 84 (79-97) fl MCH 27 L (28-32) pg MCHC 32 (30-34) % RDW 16.3 H (13.2-15.2) % Plt Count 207 (140-440) K/mm3 Lymph % (Auto) 28.9 (13.4-35.0) % [place] % (Auto) 10.5 H (0.0-7.3) % Eos % (Auto) 3.9 (0.0-4.3) % Baso % (Auto) 1.2 (0.0-1.8) % Lymph # 1.6 (1.2-5.4) K/mm3 [place] # 0.6 (0.0-0.8) K/mm3 Eos # 0.2 (0.0-0.4) K/mm3 Baso # 0.1 (0.0-0.1) K/mm3 Seg Neutrophils % 55.5 (40.0-70.0) % Seg Neutrophils # 3.1 (1.8-7.7) K/mm3 Sodium 135 L (137-145) mmol/L Potassium 4.1 (3.6-5.0) mmol/L Chloride 104.5 (98-107) mmol/L Carbon Dioxide 22 (22-30) mmol/L Anion Gap 13 mmol/L BUN 4 L (7-17) mg/dL Creatinine 0.5 L (0.7-1.2) mg/dL Estimated GFR > 60 ml/min BUN/Creatinine Ratio 8 % Glucose 80 (65-100) mg/dL Calcium 9.0 (8.4-10.2) mg/dL Total Bilirubin 0.80 (0.1-1.2) mg/dL AST 11 (5-40) units/L ALT 7 (7-56) units/L Alkaline Phosphatase 60 (35-129) units/L Total Protein 7.1 (6.3-8.2) g/dL Albumin 3.9 (3.9-5) g/dL Albumin/Globulin Ratio 1.2 % - EKG Data Rate: bradycardia - EKG Data 08/27/18 16:29 EKG interpreted by attending Ami Kelly - Medical Decision Making Patient is stable and was examined by me. Patient is non-toxic appearing. Vitals are stable. Labs obtained and EKG, all unremarkable. Syncopal episode , Patient will need to follow up with PCP or [facility] in 2-3 days. Discussed plan with patient and agreed to plan. No further questions noted by the patient. Discharged home in stable condition. Follow up with PCP in 1 week. Critical care attestation.: If time is entered above; I have spent that time in minutes in the direct care of this critically ill patient, excluding procedure time. ED Disposition Clinical Impression: Episode of syncope Qualifiers: Syncope type: vasovagal syncope Qualified Code(s): R55 - Syncope and collapse Disposition: - TO HOME OR SELFCARE Is pt being admited?: No Does the pt Need Aspirin: No Condition: Stable Instructions: Syncope (ED) Additional Instructions: Follow up with your primary care provider or [facility] in 2-3 days. Inform primary care provider if change in frequency or presentation of symptoms. Avoid situations where syncope has occurred in the past for example prolonged standing, pain, emotional distress, defecation, dehydration. Referrals: [facility] [Outside] - 3-5 Days [facility] [Provider Group] - 3-5 Days [facility] [Provider Group] - 3-5 Days Forms: Work/School Release Form(ED) Time of Disposition: 16:31 Print Language: BOLIVIAN
[2018-08-27 14:40] LABS: Basophils # (Auto) 0.1 K/mm3 (0.0-0.1); Basophils % (Auto) 1.2 % (0.0-1.8); Eosinophils # (Auto) 0.2 K/mm3 (0.0-0.4); Eosinophils % (Auto) 3.9 % (0.0-4.3); Hematocrit 38.4 % (30.3-42.9); Hemoglobin 12.3 gm/dl (10.1-14.3); Lymphocytes # (Auto) 1.6 K/mm3 (1.2-5.4); Lymphocytes % (Auto) 28.9 % (13.4-35.0); Mean Corpuscular HGB Conc 32 % (30-34); Mean Corpuscular Hemoglobin 27 pg (28-32); Mean Corpuscular Volume 84 fl (79-97); Monocytes # (Auto) 0.6 K/mm3 (0.0-0.8); Monocytes % (Auto) 10.5 % (0.0-7.3); Platelet Count 207 K/mm3 (140-440); Red Blood Count 4.55 M/mm3 (3.65-5.03); Red Cell Distribution Width 16.3 % (13.2-15.2)
[2018-08-27 15:08] LABS: Alanine Aminotransferase 7 units/L (7-56); Albumin 3.9 g/dL (3.9-5); BUN/Creatinine Ratio 8; Blood Urea Nitrogen 4 mg/dL (7-17); Hemolysis Index 25
== END 2018-08-27 16:44 | disposition home or self-care (01) ==
LOC: ED 12:56
DX: O26.891 Other specified pregnancy related conditions, first trimester (principal); R55 Syncope and collapse; Z3A.01 Less than 8 weeks gestation of pregnancy
CPT/HCPCS: 36415; 80053; 85025; 93005; 93010; 99283

== ENCOUNTER 2019-03-23 18:18 | Outpatient (CLI) | payer MEDICAID ==
[2019-03-23 18:49] VITALS: BP 112/68
[2019-03-23] MEDS ORDERED: VISTARIL PO ONE (19:15)
== END 2019-03-23 19:30 | disposition home or self-care (01) ==
LOC: TRG 18:18
PROVIDERS: ATTEND Obstetrics & Gynecology
DX: O47.03 False labor before 37 completed weeks of gestation, third trimester (principal); O13.3 Gestational [pregnancy-induced] hypertension without significant proteinuria, third trimester; Z3A.33 33 weeks gestation of pregnancy
CPT/HCPCS: 59025; Q0177

== ENCOUNTER 2019-03-27 19:54 | Inpatient (IN) | payer MEDICAID ==
[2019-03-27] MEDS ORDERED: MINERAL OIL PO PRN (20:28)
[2019-03-27] MEDS ORDERED: AMPICILLIN/NS 2 GM/100 ML 2 GM/100 ML BAG IV ONE (20:28)
[2019-03-27] MEDS ORDERED: BRETHINE SUB-Q PRN (20:28)
[2019-03-27] MEDS ORDERED: ZOFRAN IV PRN (20:28)
[2019-03-27] MEDS ORDERED: XYLOCAINE 2% INFILTRATI ONE (20:28)
[2019-03-27] MEDS ORDERED: PITOCin/NS 30 UNIT/500ML 30 UNITS/500 ML BAG IV SCH (21:00)
[2019-03-27] MEDS ORDERED: PITOCin/NS 20 UNIT/1000ML DRIP 20 UNITS/1,000 ML BAG IV SCH (21:00)
[2019-03-27] MEDS ORDERED: LACTATED RINGERS 1,000 ML IV SCH (21:00)
[2019-03-27 21:11] LABS: Hematocrit 33.7 % (30.3-42.9); Hemoglobin 10.5 gm/dl (10.1-14.3); Mean Corpuscular HGB Conc 31 % (30-34); Mean Corpuscular Volume 77 fl (79-97); Platelet Count 251 K/mm3 (140-440); Red Blood Count 4.36 M/mm3 (3.65-5.03); Red Cell Distribution Width 18.2 % (13.2-15.2)
--- NOTE | 2019-03-27 22:23 | History and Physical Report ---
History of Present Illness Date of examination: 03/27/19 Date of admission: 03/27/19 21:04 Chief complaint: SROM @ 1600 -clear fluid History of present illness: Per pt's mother - she had a 24week delivery, and 2 term deliveries and an SAB. Her last child was killed @ 5 months old by a dog. Pt never informed providers of SAB, 24 week delivery or child. hx below is from her initial office visit. H&P will reflect new information provided by pt's mother. EDC Confirmation: 04/10/2019 Past History : 3 Term Births: 2 Premature Births: 0 Living Children: 2 Para: 2 Mult. Births: 0 Prev : 0 Prev. attempt? 0 Aborta: 0 Elect. Ab: 0 Spont. Ab: 0 Ectopics: 0 # 1 Delivery date: 08/09/2008 Weeks Gestation: 38 labor: no Delivery type: Hours of labor: 8 Anesthesia type: none Delivery location: [facility] [place] Sex: Female weight: 6-0 Name: Franklin # 2 Delivery date: 11/2017 Weeks Gestation: term labor: no Delivery type: Anesthesia type: none Delivery location: [facility] [place] Sex: Female weight: 6# Past Medical History: Reviewed history from 04/28/2017 and no changes required: Anemia Past Surgical History: Reviewed history and no changes required: Negative Past Surgical History Past Medical History Surgery (Non-motor bike mechanic): Negative Past Surgical History Abnormal PAP: negative Social Hx: Patient is single works at [employer] Infection History Hx of STD: gonorrhea HIV Risk Eval: low risk Hepatitis B Risk Eval: low risk Personal hx. of genital herpes: no Partner hx. of genital herpes: no Rash, Viral, or Febrile illness since last LMP? no Varicella/Chicken Pox Status: Unknown TB Risk: no Genetic History Congenital Heart Defect: Mom: no Dad: no Toyin Disease: Mom: no Dad: no Thalassemia Mom: no Dad: no Neural Tube Defect Mom: no Dad: no Down's Syndrome Mom: no Dad: no Francis-Sachs Mom: no Dad: no Sickle Cell Disease/Trait Mom: no Dad: no Hemophilia Mom: no Dad: no Muscular Dystrophy Mom: no Dad: no Cystic Fibrosis Mom: no Dad: no Bruno Chorea Mom: no Dad: no Mental Retardation Mom: no Dad: no Fragile X Mom: no Dad: no Other Genetic/Chromosomal Disorder Mom: no Dad: no Child w/other defect Mom: no Dad: no Enviromental Exposures Xray Exposure: no Medication, drug, or alcohol use since LMP: no Chemical/Other Exposure: no Exposure to Cat Liter: no Hx of Parvovirus (Fifth Disease): no Occupational Exposure to Children: none Active Medications: None Current Allergies: No known allergies Past History Past Medical History: other (see HPI) Past Surgical History: other (see HPIs) PASSENGER AGENT History: other (see HPI) Family/Genetic History: other (see HPI) - Obstetrical History Expected Date of Delivery: 04/10/19 Actual Gestation: 38 Week(s) 1 Day(s) : 4 Para: 3 Hx # Term Pregnancies: 2 Number of Pregnancies: 1 Spontaneous Abortions: 1 Number of Living Children: 1 (last child of dog attack) Medications and Allergies Allergies Allergy/AdvReac Type Severity Reaction Status Date / Time No Known Allergies Allergy Verified 08/27/18 13:28 Home Medications Medication Instructions Recorded Confirmed Last Taken Type Azelastine 0.1% (Nf) [Astelin (Nf)] 137 mcg NS QDAY PRN #1 bottle 02/27/17 Unknown Rx Fluticasone [Flonase] 1 spray NS QDAY PRN #1 bottle 02/27/17 Unknown Rx Loratadine [Claritin] 10 mg PO DAILY #30 tablet 02/27/17 Unknown Rx Naproxen [Naproxen TAB] 250 mg PO BID PRN #20 tablet 02/27/17 Unknown Rx guaiFENesin DM [Robitussin Dm] 10 ml PO Q6HR PRN #1 bottle 02/27/17 Unknown Rx Doxylamine Succinate/Vit B6 1 each PO QHS PRN #30 tablet. 04/17/17 Unknown Rx [Liane Olivarez 10-10 mg Tablet] Vit Calc,Iron,Folic 1 each PO QDAY #30 tablet 04/17/17 Unknown Rx [ Vitamins] diphenhydrAMINE [Benadryl CAP] 25 mg PO Q6HR PRN #15 tab 01/12/18 Unknown Rx predniSONE [Deltasone] 40 mg PO QDAY #6 tab 01/12/18 Unknown Rx 21/Iron Fu/Folic Acid 1 each PO DAILY #30 tablet 08/14/18 Unknown Rx [ Complete Caplet] Active Meds: Active Medications Ephedrine Sulfate (Ephedrine Sulfate) 10 mg IV Q2M PRN PRN Reason: Hypotension Fentanyl (Sublimaze) 100 mcg IV Q2H PRN PRN Reason: Labor Pain Ampicillin Sodium (Ampicillin/Ns 1 Gm/50 Ml) 1 gm in 50 mls @ 100 mls/hr IV Q4HR NIEVES; Protocol Lactated Ringer's (Lactated Ringers) 1,000 mls @ 125 mls/hr IV DIRECT NIEVES Oxytocin/Sodium Chloride (Pitocin/Ns 20 Unit/1000ml Drip) 20 units in 1,000 mls @ 125 mls/hr IV DIRECT NIEVES Oxytocin/Sodium Chloride (Pitocin/Ns 30 Unit/500ml) 30 units in 500 mls @ 1 mls/hr IV TITR NIEVES; Protocol Mineral Oil (Mineral Oil) 30 ml PO QHS PRN PRN Reason: Constipation Ondansetron HCl (Zofran) 4 mg IV Q8H PRN PRN Reason: Nausea And Vomiting Terbutaline Sulfate (Brethine) 0.25 mg SUB-Q ONCE PRN PRN Reason: Hyperstimulation/Hypertonicity Review of Systems All systems: negative - Vital Signs Vital signs: Vital Signs Temp Resp 98.0 F 22 03/27/19 20:00 03/27/19 20:00 Temp Pulse Resp BP Pulse Ox 98.0 F 107 H 22 106/63 03/27/19 20:00 03/27/19 21:02 03/27/19 20:00 03/27/19 21:02 - Obstetrical Cervical Dilatation: 2.5 (per RN) Results Result Diagrams: 03/27/19 21:01 Abnormal lab results 03/27/19 Range/Units 21:01 MCV 77 L (79-97) fl MCH 24 L (28-32) pg RDW 18.2 H (13.2-15.2) % All other labs normal. Assessment and Plan 28y/o L1 (based on information from pt's mother) @ 38+0 weeks arrived with gross SROM @ 1600 03/27/19, occasional/irregular ctx. GBS collected a few days ago in office but not yet resulted so will treat prophylactically. Pt has not been non-compliant with care - she did not pass her 1hGTT and never returned for 3hGTT. total weight gain +42lbs for the . Will treat for unknown GBS and augment labor as needed. Anticipate . Admission orders in EMR. - Patient Problems (1) 38 weeks gestation of Current Visit: Yes Status: Acute (2) Noncompliance by refusing intervention or support Current Visit: Yes Status: Acute (3) SROM (spontaneous rupture of membranes) Current Visit: Yes Status: Acute Plan to address problem: limit SVE monitor temp monitor for s/s infection augment labor as needed
[2019-03-28] MEDS: AMPICILLIN/NS 1 GM/50 ML 1 GM/50 ML BAG IV SCH ×2 (02:47→06:05)
[2019-03-28] MEDS ORDERED: PITOCin/NS 30 UNIT/500ML 30 UNITS/500 ML BAG IV SCH (05:00)
[2019-03-28] MEDS: SUBLIMAZE IV PRN ×2 (05:55→07:05)
--- NOTE | 2019-03-28 07:11 | Progress Note ---
Assessment and Plan patient laboring w/o epidural. c/o pressure with ctx. anticipate - Patient Problems (1) 38 weeks gestation of Current Visit: Yes Status: Acute (2) Noncompliance by refusing intervention or support Current Visit: Yes Status: Acute (3) SROM (spontaneous rupture of membranes) Current Visit: Yes Status: Acute Subjective - Subjective Date of service: 03/28/19 Principal diagnosis: IUP @ 38+1, laboring Interval history: Per pt's mother - she had a 24week delivery, and 2 term deliveries and an SAB. Her last child was killed @ 5 months old by a dog. Pt never informed providers of SAB, 24 week delivery or child. hx below is from her initial office visit. H&P will reflect new information provided by pt's mother. EDC Confirmation: 04/10/2019 Past History : 3 Term Births: 2 Premature Births: 0 Living Children: 2 Para: 2 Mult. Births: 0 Prev : 0 Prev. attempt? 0 Aborta: 0 Elect. Ab: 0 Spont. Ab: 0 Ectopics: 0 # 1 Delivery date: 08/09/2008 Weeks Gestation: 38 labor: no Delivery type: Hours of labor: 8 Anesthesia type: none Delivery location: [facility] [place] Sex: Female weight: 6-0 Name: Franklin # 2 Delivery date: 11/2017 Weeks Gestation: term labor: no Delivery type: Anesthesia type: none Delivery location: [facility] [place] Sex: Female weight: 6# Past Medical History: Reviewed history from 04/28/2017 and no changes required: Anemia Past Surgical History: Reviewed history and no changes required: Negative Past Surgical History Past Medical History Surgery (Non-urogynecology physician): Negative Past Surgical History Abnormal PAP: negative Social Hx: Patient is single works at [employer] Infection History Hx of STD: gonorrhea HIV Risk Eval: low risk Hepatitis B Risk Eval: low risk Personal hx. of genital herpes: no Partner hx. of genital herpes: no Rash, Viral, or Febrile illness since last LMP? no Varicella/Chicken Pox Status: Unknown TB Risk: no Genetic History Congenital Heart Defect: Mom: no Dad: no Toyin Disease: Mom: no Dad: no Thalassemia Mom: no Dad: no Neural Tube Defect Mom: no Dad: no Down's Syndrome Mom: no Dad: no Francis-Sachs Mom: no Dad: no Sickle Cell Disease/Trait Mom: no Dad: no Hemophilia Mom: no Dad: no Muscular Dystrophy Mom: no Dad: no Cystic Fibrosis Mom: no Dad: no Grabill Chorea Mom: no Dad: no Mental Retardation Mom: no Dad: no Fragile X Mom: no Dad: no Other Genetic/Chromosomal Disorder Mom: no Dad: no Child w/other defect Mom: no Dad: no Enviromental Exposures Xray Exposure: no Medication, drug, or alcohol use since LMP: no Chemical/Other Exposure: no Exposure to Cat Liter: no Hx of Parvovirus (Fifth Disease): no Occupational Exposure to Children: none Active Medications: None Current Allergies: No known allergies Patient reports: loss of fluid, contractions, other (rectal pressure) Objective - Vital Signs Vital Signs: Vital Signs - 12hr 03/27/19 03/27/19 03/27/19 20:00 20:30 21:02 Temperature 98.0 F Pulse Rate 93 H 107 H Respiratory 22 Rate Blood Pressure 96/54 106/63 03/27/19 03/27/19 03/27/19 22:18 22:59 23:19 Temperature Pulse Rate 83 87 83 Respiratory Rate Blood Pressure 119/74 102/61 113/63 03/27/19 03/27/19 03/28/19 23:30 23:48 00:17 Temperature 97.6 F Pulse Rate 89 96 H Respiratory Rate Blood Pressure 101/56 109/56 03/28/19 03/28/19 03/28/19 00:50 01:17 01:30 Temperature 98.2 F Pulse Rate 89 81 Respiratory Rate Blood Pressure 103/57 91/53 03/28/19 03/28/19 03/28/19 01:49 02:20 02:51 Temperature Pulse Rate 86 76 80 Respiratory Rate Blood Pressure 104/69 105/66 110/63 03/28/19 03/28/19 03/28/19 03:20 03:30 03:50 Temperature 97.4 F L Pulse Rate 81 82 Respiratory Rate Blood Pressure 106/57 82/57 03/28/19 03/28/19 03/28/19 04:08 04:18 04:20 Temperature 98.6 F Pulse Rate 82 77 69 Respiratory Rate Blood Pressure 90/54 104/58 96/60 03/28/19 03/28/19 03/28/19 04:50 05:20 05:50 Temperature Pulse Rate 68 74 65 Respiratory Rate Blood Pressure 99/57 108/61 120/81 03/28/19 03/28/19 03/28/19 05:55 06:22 06:52 Temperature Pulse Rate 70 82 Respiratory 18 Rate Blood Pressure 100/54 119/81 - Exam Breasts: normal Cardiovascular: Regular rate Lungs: Clear to auscultation Abdomen: Present: normal appearance, soft Vulva: both: normal Uterus: Present: normal FHR: auscultation normal, category 1 Uterine Contraction Monitor Mode: External Cervical Dilatation: 6.5 Cervical Effacement Percentage: 90 station: -1 Uterine Contraction Pattern: Regular Uterine Tone Measurement Phase: Contraction Uterine Contraction Intensity: Strong/Firm Extremities: normal Deep Tendon Reflex Grade: Normal +2 - Labs Labs: Abnormal Labs 03/27/19 21:01 MCV 77 L MCH 24 L RDW 18.2 H Laboratory Results - last 24 hr 03/27/19 03/27/19 21:01 21:01 WBC 9.6 RBC 4.36 Hgb 10.5 Hct 33.7 MCV 77 L MCH 24 L MCHC 31 RDW 18.2 H Plt Count 251 Blood Type O POSITIVE Antibody Screen Negative
--- NOTE | 2019-03-28 07:59 | Procedure Note ---
OB Delivery Note - Delivery Date of Delivery: 03/28/19 ( female) Lifeguard: ROHIT YOO Estimated blood loss: 200cc - Vaginal Delivery presentation: vertex Delivery position: OA (CURT) Intrapartum events: none Delivery induction: none Delivery augmentation: pitocin Delivery monitor: external FHT, external uterine Route of delivery: Delivery placenta: spontaneous Delivery cord: 3 umbilical vessels Episiotomy: none Delivery laceration: 1st degree (hemostatic and well approximated - not repaired) Anesthesia: intravenous Delivery comments: female infant delivered over intact perineum, CURT. placed on mother's abdomen for skin to skin. 3 vessel cord clamped and cut after cessation of pulsation. cord blood collected. placenta del intact and complete. Pit to IVF. small 1st degree vaginal laceration well approximated and not bleeding - not repaired. EBL 200, apgars 8/9, wt 6#7oz. Mother and remain LDR stable. Social service consult and mental yessica consult ordered d/t concern over PTSD r/t hx of following 24 weeks delivery and the of her 5 month old daughter last year after being attacked by a dog. pt did not reveal this hx to providers during . - Infant A at 1 minute: 8 (6#7oz) at 5 minutes: 9 Infant Gender: Female
[2019-03-28] MEDS ORDERED: IBUPROFEN PO PRN (08:12)
[2019-03-28] MEDS ORDERED: BENADRYL PO PRN (11:16)
[2019-03-28] MEDS ORDERED: DULCOLAX PR PRN (11:16)
[2019-03-28] MEDS ORDERED: DERMOPLAST TP PRN (11:16)
[2019-03-28] MEDS ORDERED: PHENERGAN PO PRN (11:16)
[2019-03-28] MEDS ORDERED: TUCKS PAD TP PRN (11:16)
[2019-03-28] MEDS ORDERED: SODIUM CHLORIDE FLUSH SYRINGE 10 ML IV NR (11:16)
[2019-03-28] MEDS ORDERED: LANSINOH TP PRN (11:16)
[2019-03-28] MEDS ORDERED: MILK OF MAGNESIA PO PRN (11:16)
[2019-03-28] MEDS ORDERED: PITOCin/NS 20 UNIT/1000ML DRIP 20 UNITS/1,000 ML BAG IV SCH (11:16)
[2019-03-28] MEDS: IBUPROFEN PO SCH ×2 (11:43→20:44)
[2019-03-28] MEDS ORDERED: AFLURIA QUAD 2018-2019 SYRINGE IM ONE (12:00)
[2019-03-28] MEDS: PRENATAL VITAMIN PO SCH (16:48)
[2019-03-28] MEDS: TYLENOL PO PRN (16:49)
[2019-03-28 19:23] LABS: Hematocrit 31.8 % (30.3-42.9); Hemoglobin 10.1 gm/dl (10.1-14.3)
[2019-03-28] MEDS ORDERED: NORCO 5/325 PO ONE (22:46)
[2019-03-29] MEDS: IBUPROFEN PO SCH ×4 (03:54→20:48)
[2019-03-29] MEDS ORDERED: BOOSTRIX IM ONE ×2 (06:00→07:38)
--- NOTE | 2019-03-29 06:52 | Progress Note ---
Assessment and Plan - Patient Problems (1) (spontaneous vaginal delivery) Onset Date: ~03/28/19 Current Visit: Yes Status: Acute Plan to address problem: Pt resting C/O pain encouraged to take Motrin as scheduled, be OOB, hydrate. VSS FF below umb Lochia scant, perineum intact H&H 09/23 stable. Doing well s/p vag delivery P: awaiting psych and MH consults Pt understands and voices agreement Cont pathway poss d/c tomorrow. Subjective - Subjective Date of service: 03/29/19 (pt c/o pain encouraged scheduled motrin) Principal diagnosis: Day # 1 s/p Girl Patient reports: appetite normal, voiding normally [place]: doing well Objective - Vital Signs Latest vital signs: Vital Signs Temp Pulse Resp BP BP Pulse Ox 03/29/19 00:30 98.4 F 73 18 106/61 97 03/28/19 17:05 97.3 F L 82 18 118/63 97 03/28/19 11:58 98.8 F 75 18 100/53 95 03/28/19 11:43 17 03/28/19 09:15 97.4 F L 22 03/28/19 09:14 72 94/70 03/28/19 09:00 70 111/73 03/28/19 08:44 71 110/76 03/28/19 08:29 69 113/73 03/28/19 08:14 68 113/61 03/28/19 07:59 75 92/61 03/28/19 07:44 86 95/54 03/28/19 07:38 72 107/61 03/28/19 07:33 80 111/66 03/28/19 07:20 71 107/83 03/28/19 07:00 97.0 F L 20 03/28/19 06:52 82 119/81 Intake and Output 03/28/19 03/28/19 03/29/19 14:59 22:59 06:59 Intake Total 120 180 Output Total 400 700 Balance -280 -700 180 Intake: Oral 120 Intake, Free Water 180 Output: Urine 400 700 Void 400 700 Other: Total, Intake Amount 120 Total, Output Amount 400 700 # Voids Void 1 1 1 Estimated Blood Loss 200 - Exam Breasts: Present: normal Cardiovascular: Present: Regular rate Lungs: Present: Normal air movement Abdomen: Present: normal appearance, soft Vulva: both: normal Uterus: Present: normal Extremities: Present: normal Incision: Present: normal, dry, intact
[2019-03-29] MEDS: PRENATAL VITAMIN PO SCH (10:32)
--- NOTE | 2019-03-29 12:49 | Event Note ---
Date: 03/29/19 (Consults incomplete) school attendance secretary notified to please complete case management and mental consults as noted on chart. Orders written 03/28/19.
[2019-03-29] MEDS: TYLENOL PO PRN (22:28)
--- NOTE | 2019-03-30 07:36 | Discharge Summary ---
Providers - Providers Date of Admission: 03/27/19 21:04 Date of discharge: 03/30/19 Attending physician: LEVY MILLS 03/28/19 11:16 Consult to Case Management [CONS] Routine Services Needed at Discharge: Field Service Consultant Notified:: case management Phone number called:: [phone] Was contact made?: Yes If yes, spoke with:: Stephanie Time called:: 13:00 Additional Physician Instructions: pt did not disclose hx of a nd child that was killed by dog attack last year. She was also noncompliant with care. Consult to Mental Health [CONS] Routine Reason For Exam: withheld information, PTSD from of child? Place consult to:: Mental Amrit provider Notified:: psych Phone number called:: [phone] Was contact made?: Yes If yes, spoke with:: Maggie Time called:: 13:03 Primary care physician: ANGELI JOSE Hospitalization Reason for admission: labor Condition: Good Pertinent studies: post delivery H&H 10.1/31.8 Procedures: Hospital course: uncomplicated vaginal and course Disposition: DC-01 TO HOME OR SELFCARE - Discharge Diagnoses (1) (spontaneous vaginal delivery) Status: Acute Core Measure Documentation - Palliative Care Palliative Care/ Comfort Measures: Not Applicable - Core Measures Any of the following diagnoses?: none Exam - Constitutional Vitals: Temp Pulse Resp BP Pulse Ox 97.9 F 64 18 105/62 95 03/29/19 23:35 03/29/19 23:35 03/29/19 23:35 03/29/19 23:35 03/29/19 23:35 General appearance: Present: no acute distress, well-nourished - EENT Eyes: Present: PERRL ENT: hearing intact, clear oral mucosa - Neck Neck: Present: supple, normal ROM - Respiratory Respiratory effort: normal Respiratory: bilateral: CTA - Cardiovascular Heart Sounds: Present: S1 & S2. Absent: rub, click - Extremities Extremities: pulses symmetrical, No edema Peripheral Pulses: within normal limits - Abdominal General gastrointestinal: Present: soft, non-tender, non-distended, normal bowel sounds Female genitourinary: Present: normal - Integumentary Integumentary: Present: clear, warm, dry - Musculoskeletal Musculoskeletal: gait normal, strength equal bilaterally - Psychiatric Psychiatric: appropriate mood/affect, intact judgment & insight - Neurologic Neurologic: CNII-XII intact, moves all extremities - Additional findings Additional findings: VSSAF, fundus firm, lochia scant, bottle feeding Plan Activity: no restrictions Diet: regular Follow up with: ANGELI JOSE MD [Primary Care Provider] - 6 Weeks (Congratulations! Please call [phone] to schedule your visit in 6 weeks. Call for any questions or concerns. ) Prescriptions: Ibuprofen [Motrin 800 MG tab] 800 mg PO Q8HR PRN #30 tablet PRN Reason: Pain
[2019-03-30] MEDS: PRENATAL VITAMIN PO SCH (10:02)
[2019-03-30] MEDS: TYLENOL PO PRN (10:40)
[2019-03-30] MEDS: IBUPROFEN PO SCH (11:52)
--- NOTE | 2019-03-30 12:07 | Consultation ---
History of Present Illness - Reason for Consult Consult date: 03/30/19 Reason for consult: Mental Health EValuation Requesting physician: ROHIT YOO - Chief Complaint Chief complaint: "I am okay" - History of Present Psychiatric Illness 28 y.o. AA female who presented to [facility]. Psychiatry was consulted for possible PTSD. Today the patient is calm and cooperative during the assessment. She st ated that she experienced a "stillbirth." Also, her 5 month old child was mauled by a dog. She stated that she think about these things, but denies that her "day to day life" have been affected. She does admit that she "struggle internally some times" thinking about what has happened in her life. She stated that she went to therapy in the past at "[facility]. She stated that the sessions were "somewhat" helpful. She stated that she wouldn't mind going back to therapy in the near future. She stated that she is happy to be a new mother and look forward to getting back to work so she can provide for her children. Throughout the interview, the patient was attending to her . She denies SI/HI's and AVH's. She denies erratic sleep and a poor appetite. She denies recreational drug use and alcohol consumption (etoh). Medications and Allergies Allergies Allergy/AdvReac Type Severity Reaction Status Date / Time No Known Allergies Allergy Verified 08/27/18 13:28 Home Medications Medication Instructions Recorded Confirmed Last Taken Type Azelastine 0.1% (Nf) [Astelin (Nf)] 137 mcg NS QDAY PRN #1 bottle 02/27/17 03/29/19 Unknown Rx Fluticasone [Flonase] 1 spray NS QDAY PRN #1 bottle 02/27/17 03/29/19 Unknown Rx Loratadine [Claritin] 10 mg PO DAILY #30 tablet 02/27/17 03/29/19 Unknown Rx Naproxen [Naproxen TAB] 250 mg PO BID PRN #20 tablet 02/27/17 03/29/19 Unknown Rx guaiFENesin DM [Robitussin Dm] 10 ml PO Q6HR PRN #1 bottle 02/27/17 03/29/19 Unknown Rx Doxylamine Succinate/Vit B6 1 each PO QHS PRN #30 tablet. 04/17/17 03/29/19 Unknown Rx [Diclegis Dr 10-10 mg Tablet] Vit Calc,Iron,Folic 1 each PO QDAY #30 tablet 04/17/17 03/29/19 03/27/19 Rx [ Vitamins] diphenhydrAMINE [Benadryl CAP] 25 mg PO Q6HR PRN #15 tab 01/12/18 03/29/19 Unknown Rx predniSONE [Deltasone] 40 mg PO QDAY #6 tab 01/12/18 03/29/19 Unknown Rx 21/Iron Fu/Folic Acid 1 each PO DAILY #30 tablet 08/14/18 03/29/19 03/27/19 Rx [ Complete Caplet] Ibuprofen [Motrin 800 MG tab] 800 mg PO Q8HR PRN #30 tablet 03/30/19 Unknown Rx Active Meds: Active Medications Acetaminophen (Tylenol) 650 mg PO Q4H PRN PRN Reason: Pain MILD(1-3)/Fever >100.5/ALMAZAN Last Admin: 03/30/19 10:40 Dose: 650 mg Documented by: Benzocaine/Menthol (Dermoplast) 1 spray TP PRN PRN PRN Reason: Pain, Mild (1-3) Bisacodyl (Dulcolax) 10 mg MD BID PRN PRN Reason: Constipation Diphenhydramine HCl (Benadryl) 25 mg PO Q6H PRN PRN Reason: Itching Oxytocin/Sodium Chloride (Pitocin/Ns 20 Unit/1000ml Drip) 20 units in 1,000 mls @ 250 mls/hr IV DIRECT NIEVES Ibuprofen (Motrin) 600 mg PO Q6H [facility] Last Admin: 03/30/19 11:52 Dose: Not Given Documented by: Magnesium Hydroxide (Milk Of Magnesia) 30 ml PO HS PRN PRN Reason: Constipation Multi-Ingredient Ointment (Lansinoh) 1 applic TP PRN PRN PRN Reason: Sore Nipples Multivitamins/Iron/Calcium ( Vitamin) 1 each PO QDAY [facility] Last Admin: 03/30/19 10:02 Dose: 1 each Documented by: Promethazine HCl (Phenergan) 25 mg PO Q6H PRN PRN Reason: Nausea And Vomiting Witch Aissatou/Glycerin (Tucks Pad) 1 each TP PRN PRN PRN Reason: Hemorrhoid/cleansing/soothing Past psychiatric history - Past Medical History Past Medical History: other ( x 3) Past Surgical History: No surgical history - past Psychiatric treatment and history psychiatric treatment history: Denies a psy hx and a fam psy hx. - Social History Social history: lives with family Mental Status Exam - Vital signs Last Vital Signs Temp 97.9 F 03/30/19 07:39 Pulse 59 L 03/30/19 07:39 Resp 16 03/30/19 10:40 BP 106/59 03/30/19 07:39 Pulse Ox 95 03/29/19 23:35 - Exam Narrative exam: MSE: Appearance: calm, cooperative Behavior: regular eye contact Speech: regular rate and tone Mood: "okay" Affect: congruent to mood Thought Process: linear Thought Content: denies SI/HI's and AVH's Motor Activity: ambulatory Cognition: A/O x3 Insight: appropriate Judgment: appropriate Results Result Diagrams: 03/28/19 19:12 All other labs normal. Assessment and Plan Assessment and plan: Impression: Adjustment DO. Today the patient is calm and cooperative during the assessment. DDx: R/O MDD, PTSD Recommendation/Plan: Discussed the benefits of therapy, she verbalized understanding. Dispo: The patient can follow up with [facility] for outpatient therapy. Will staff with Dr Frances Quinonez.
[2019-03-30 17:03] VITALS: BP 108/72
== END 2019-03-30 19:21 | disposition home or self-care (01) | DRG 775 ==
LOC: TRG 19:54 → LD 21:04 → OB 03-28 09:53
PROVIDERS: ADMIT Obstetrics & Gynecology; ATTEND Obstetrics & Gynecology
PROC: 10E0XZZ Delivery of Products of Conception, External Approach (ICD-10-PCS; principal; 2019-03-28)
DX: O99.344 Other mental disorders complicating childbirth (principal); O70.0 First degree perineal laceration during delivery; Z3A.38 38 weeks gestation of pregnancy; Z37.0 Single live birth; Z91.19 Patient's noncompliance with other medical treatment and regimen; F43.20 Adjustment disorder, unspecified
CPT/HCPCS: 36415; 85014; 85018; 85027; 86592; 86850; 86900; 86901; 90471; 90686; 90715; G0378; J0290; J2590; J3010; J7120

== ENCOUNTER 2019-12-28 18:02 | Emergency (ER) | payer SELFPAY ==
[2019-12-28 20:15] VITALS: BP 103/63
[2019-12-28 20:31] LABS: Basophils # (Auto) 0.1 K/mm3 (0.0-0.1); Basophils % (Auto) 1.8 % (0.0-1.8); Eosinophils # (Auto) 0.2 K/mm3 (0.0-0.4); Eosinophils % (Auto) 4.2 % (0.0-4.3); Hematocrit 36.8 % (30.3-42.9); Hemoglobin 12.1 gm/dl (10.1-14.3); Lymphocytes # (Auto) 1.6 K/mm3 (1.2-5.4); Lymphocytes % (Auto) 37.7 % (13.4-35.0); Mean Corpuscular HGB Conc 33 % (30-34); Mean Corpuscular Volume 84 fl (79-97); Monocytes # (Auto) 0.5 K/mm3 (0.0-0.8); Monocytes % (Auto) 10.8 % (0.0-7.3); Platelet Count 184 K/mm3 (140-440); Red Blood Count 4.39 M/mm3 (3.65-5.03); Red Cell Distribution Width 15.7 % (13.2-15.2)
[2019-12-28 20:54] LABS: Alanine Aminotransferase 10 units/L (7-56); Albumin 3.8 g/dL (3.9-5); BUN/Creatinine Ratio 22; Blood Urea Nitrogen 11 mg/dL (7-17); Calcium 9.5 mg/dL (8.4-10.2); Hemolysis Index 20
[2019-12-28 23:09] LABS: HCG Qualitative,Urine Positive (Negative)
[2019-12-28 23:10] LABS: Bilirubin,Urine NEG (Negative); Blood,Urine NEG (Negative); Color,Urine Yellow (Yellow); Mucus,Urine FEW /HPF; Protein,Urine <15 mg/dL mg/dL (Negative)
--- NOTE | 2019-12-29 01:55 | Ultrasound Report ---
OB Ultrasound HISTORY: abdominal pain, + preg test. TECHNIQUE: Grayscale and color imaging performed. COMPARISON: No recent comparison exam. FINDINGS: Uterus measures 12.2 x 7.0 x 8.9 cm with endometrial complex measuring 4.4 cm. There is a v iable intrauterine gestation with crown-rump length of 2.9 cm corresponding with an EGA of 9 weeks an d 5 days. Estimated delivery date is 07/28/2020. A yolk sac is also present. Heart rate is 176 bpm. Aleyda centa is seen anteriorly. There is a small probable implantation hemorrhage adjacent to the gestation al sac. Both ovaries are seen with preserved blood flow. There is a simple cyst on the left measuring 4.5 cm in maximal dimension. No pelvic free fluid. IMPRESSION: 1. Single viable intrauterine gestation as above with small probable implantation hemorrhage versus s ubchorionic hemorrhage. 2. Simple left ovarian cyst. Signer Name: Varun Valerio MD Signed: 12/29/2019 1:51 AM Workstation Name: [id number]
--- NOTE | 2019-12-29 03:19 | Emergency Department Report ---
ED Female HPI - General Chief complaint: Abdominal Pain Stated complaint: STOMACH PAIN Time Seen by Provider: 12/28/19 18:36 Source: patient Mode of arrival: Ambulatory Limitations: No Limitations - History of Present Illness Initial comments: Patient is a A0 29 year-old female who presented to the ED with complaint of acute onset persistent suprapubic pressure and pain intermittently for the last 1 week. Patient states that the pain has worsened in severity in the last 2 days. Patient denies nausea, vomiting, diarrhea, v aginal bleeding, vaginal discharge, chest pain, shortness of breath, low back pain, dizziness, cough, dyspareunia, fever and chills. MD Complaint: pelvic pain -: Sudden, week(s) (1) Location: suprapubic Radiation: non-radiating Severity: moderate Severity scale (0 -10): 3 Quality: cramping, aching Consistency: intermittent Improves with: none Worsens with: none Are you Now?: No (Unsure) Last Menstrual Period: 09/22/19 EDC: 06/28/20 Associated Symptoms: denies other symptoms, abdominal pain. denies: vaginal discharge, vaginal bleeding, nausea/vomiting, fever/chills, headaches, loss of appetite, dysuria, hematuria, rash, seizure, shortness of breath, syncope, weakness - Related Data Sexually active: Yes : 2 Para: 2 A: 0 Previous Rx's Medication Instructions Recorded Last Taken Type Azelastine 0.1% (Nf) [Astelin (Nf)] 137 mcg NS QDAY PRN #1 bottle 02/27/17 Unknown Rx Fluticasone [Flonase] 1 spray NS QDAY PRN #1 bottle 02/27/17 Unknown Rx Loratadine (Nf) [Claritin] 10 mg PO DAILY #30 tablet 02/27/17 Unknown Rx Naproxen [Naproxen TAB] 250 mg PO BID PRN #20 tablet 02/27/17 Unknown Rx guaiFENesin DM [Robitussin Dm] 10 ml PO Q6HR PRN #1 bottle 02/27/17 Unknown Rx Doxylamine Succinate/Vit B6 1 each PO QHS PRN #30 tablet. 04/17/17 Unknown Rx [Liane Olivarez 10-10 mg Tablet] Vit Calc,Iron,Folic 1 each PO QDAY #30 tablet 04/17/17 03/27/19 Rx [ Vitamins] diphenhydrAMINE [Benadryl CAP] 25 mg PO Q6HR PRN #15 tab 01/12/18 Unknown Rx predniSONE [Deltasone] 40 mg PO QDAY #6 tab 01/12/18 Unknown Rx 21/Iron Fu/Folic Acid 1 each PO DAILY #30 tablet 08/14/18 03/27/19 Rx [ Complete Caplet] Ibuprofen [Motrin 800 MG tab] 800 mg PO Q8HR PRN #30 tablet 03/30/19 Unknown Rx Allergies Allergy/AdvReac Type Severity Reaction Status Date / Time No Known Allergies Allergy Verified 08/27/18 13:28 ED Review of Systems ROS: Stated complaint: STOMACH PAIN Other details as noted in HPI Constitutional: denies: chills, fever Eyes: denies: eye pain, eye discharge, vision change ENT: denies: ear pain, throat pain Respiratory: denies: cough, shortness of breath, wheezing Cardiovascular: denies: chest pain, palpitations Endocrine: no symptoms reported Gastrointestinal: denies: abdominal pain, nausea, diarrhea Genitourinary: denies: urgency, dysuria, discharge Musculoskeletal: denies: back pain, joint swelling, arthralgia Skin: denies: rash, lesions Neurological: denies: headache, weakness, paresthesias Psychiatric: denies: anxiety, depression Hematological/Lymphatic: denies: easy bleeding, easy bruising ED Past Medical Hx - Past Medical History Previous Medical History?: Yes Hx Hypertension: No Hx CVA: No Hx Heart Attack/AMI: No Hx Congestive Heart Failure: No Hx Diabetes: No Hx Deep Vein Thrombosis: No Hx Pulmonary Embolism: No Hx GERD: No Hx Liver Disease: No Hx Renal Disease: No Hx Sickle Cell Disease: No Hx Arthritis: No Hx Headaches / Migraines: No Hx Seizures: No Hx Kidney Stones: No Hx Psychiatric Treatment: No Hx Asthma: No Hx COPD: No Hx Tuberculosis: No Hx Dementia: No Hx HIV: No Additional medical history: Ab1, Seasonal Allergies - Surgical History Past Surgical History?: No Hx Coronary Stent: No Hx Open Heart Surgery: No Hx Pacemaker: No Hx Internal Defibrillator: No Hx Cholecystectomy: No Hx Appendectomy: No Hx Breast Surgery: No - Social History Smoking Status: Never Smoker - Medications Home Medications: Home Medications Medication Instructions Recorded Confirmed Last Taken Type Azelastine 0.1% (Nf) [Astelin (Nf)] 137 mcg NS QDAY PRN #1 bottle 02/27/17 03/29/19 Unknown Rx Fluticasone [Flonase] 1 spray NS QDAY PRN #1 bottle 02/27/17 03/29/19 Unknown Rx Loratadine (Nf) [Claritin] 10 mg PO DAILY #30 tablet 02/27/17 03/29/19 Unknown Rx Naproxen [Naproxen TAB] 250 mg PO BID PRN #20 tablet 02/27/17 03/29/19 Unknown Rx guaiFENesin DM [Robitussin Dm] 10 ml PO Q6HR PRN #1 bottle 02/27/17 03/29/19 Unknown Rx Doxylamine Succinate/Vit B6 1 each PO QHS PRN #30 tablet. 04/17/17 03/29/19 Unknown Rx [Liane Olivarez 10-10 mg Tablet] Vit Calc,Iron,Folic 1 each PO QDAY #30 tablet 04/17/17 03/29/19 03/27/19 Rx [ Vitamins] diphenhydrAMINE [Benadryl CAP] 25 mg PO Q6HR PRN #15 tab 01/12/18 03/29/19 Unknown Rx predniSONE [Deltasone] 40 mg PO QDAY #6 tab 01/12/18 03/29/19 Unknown Rx 21/Iron Fu/Folic Acid 1 each PO DAILY #30 tablet 08/14/18 03/29/19 03/27/19 Rx [ Complete Caplet] Ibuprofen [Motrin 800 MG tab] 800 mg PO Q8HR PRN #30 tablet 03/30/19 Unknown Rx ED Physical Exam - General Limitations: No Limitations General appearance: alert, in no apparent distress - Head Head exam: Present: atraumatic, normocephalic, normal inspection - Eye Eye exam: Present: normal appearance, PERRL, EOMI Pupils: Present: normal accommodation - ENT ENT exam: Present: normal exam, normal orophraynx, mucous membranes moist, TM's normal bilaterally, normal external ear exam - Neck Neck exam: Present: normal inspection, full ROM. Absent: tenderness - Respiratory Respiratory exam: Present: normal lung sounds bilaterally. Absent: respiratory distress, wheezes, rales, rhonchi, chest wall tenderness, accessory muscle use - Cardiovascular Cardiovascular Exam: Present: regular rate, normal rhythm. Absent: systolic murmur, diastolic murmur, rubs, gallop - GI/Abdominal GI/Abdominal exam: Present: soft, normal bowel sounds. Absent: tenderness, guarding, hyperactive bowel sounds, hypoactive bowel sounds, organomegaly - Extremities Exam Extremities exam: Present: normal inspection, full ROM, normal capillary refill - Back Exam Back exam: Present: normal inspection, full ROM. Absent: tenderness, CVA tenderness (R), CVA tenderness (L), muscle spasm - Neurological Exam Neurological exam: Present: alert, oriented X3, CN II-XII intact, normal gait, reflexes normal - Psychiatric Psychiatric exam: Present: normal affect, normal mood - Skin Skin exam: Present: warm, dry, intact, normal color. Absent: rash ED Course Vital Signs 12/28/19 20:13 Temperature 97.9 F Pulse Rate 80 Respiratory 18 Rate Blood Pressure 103/63 O2 Sat by Pulse 97 Oximetry ED Medical Decision Making - Lab Data Result diagrams: 12/28/19 20:22 12/28/19 20:22 - Radiology Data Radiology results: report reviewed, image reviewed Findings [facility] [address] [place] [address] Ultrasound Report Signed Patient: RAJ ISRAEL MR#: [id number] : 1990 Acct:[id number] Age/Sex: 29 / F ADM Date: 12/28/19 Loc: ED Attending Dr: Ordering Physician: AMY ESTEVEZ Date of Service: 12/29/19 Procedure(s): US OB <= 14 weeks fetus Accession Number(s): [id number] cc: AMY ESTEVEZ OB Ultrasound HISTORY: abdominal pain, + preg test. TECHNIQUE: Grayscale and color imaging performed. COMPARISON: No recent comparison exam. FINDINGS: Uterus measures 12.2 x 7.0 x 8.9 cm with endometrial complex measuring 4.4 cm. There is a viable intrauterine gestation with crown-rump length of 2.9 cm corresponding with an EGA of 9 weeks and 5 days. Estimated delivery date is 07/28/2020. A yolk sac is also present. Heart rate is 176 bpm. Placenta is seen anteriorly. There is a small probable implantation hemorrhage adjacent to the gestational sac. Both ovaries are seen with preserved blood flow. There is a simple cyst on the left measuring 4.5 cm in maximal dimension. No pelvic free fluid. IMPRESSION: 1. Single viable intrauterine gestation as above with small probable implantation hemorrhage versus subchorionic hemorrhage. 2. Simple left ovarian cyst. Signer Name: Varun Valerio MD Signed: 12/29/2019 1:51 AM Workstation Name: [id number] Transcribed By: PRAKASH Dictated By: Varun Valerio MD Electronically Authenticated By: Varun Valerio MD Signed Date/Time: 12/29/19 015 DD/ 0149 TD/TT: - Medical Decision Making This is a 29-year-old female who is A0 who presented to the ED with acute onset pelvic pain for one week, and was last menstrual cycle was September 22, 2019 and [place]ally [place] [id number]. In the ED, patient is alert and oriented 3 and is not in distress, resting comfortably in the bed due to physical exam. Lab test results were reviewed and all nonactionable including urinalysis. Transvaginal ultrasound showed a single viable intrauterine gestation with heart rate of 176 bpm and a small probable implantation hemorrhage versus subchorionic hemorrhage. There is also a simple left ovarian cyst. Patient was treated for pain in the ED with Tylenol and discharged home, advised to follow up with the DIABETES CLINICAL MANAGER physician in 5-7 days for reevaluation. Patient was meanwhile advised to maintain a complete pelvic rest until followed up by the DIABETES CLINICAL MANAGER physician. Patient was advised to return to the ED immediately if symptoms get worse. Patient currently has not had any vaginal bleeding, vaginal discharge, dyspareunia, dizziness, fever, chills, nausea or vomiting. Patient was therefore advised to take only Tylenol as needed for pain - Differential Diagnosis Ovarian cyst; UTI; Subchorionic bleed; Fibroids; Critical care attestation.: If time is entered above; I have spent that time in minutes in the direct care of this critically ill patient, excluding procedure time. ED Disposition Clinical Impression: Pelvic pain during , as incidental finding Disposition: DC-01 TO HOME OR SELFCARE Is pt being admited?: No Does the pt Need Aspirin: No Condition: Stable Instructions: Abdominal Pain in (ED), (ED) Additional Instructions: Test results show that you are 9 weeks and 5 days . The heart rate is 176 bpm. Therefore maintain a complete pelvic rest and follow-up with the DIABETES CLINICAL MANAGER physician in 5-7 days for reevaluation. Take only Tylenol as needed for pain. Return to the ED immediately if symptoms get worse. Referrals: EDNA ZELAYA MD [Staff Physician] - 7-10 days Forms: Work/School Release Form(ED) Time of Disposition: 03:21 Print Language: IRISH
== END 2019-12-29 04:12 | disposition home or self-care (01) ==
LOC: ED 18:02
DX: O26.891 Other specified pregnancy related conditions, first trimester (principal); R10.2 Pelvic and perineal pain; Z79.899 Other long term (current) drug therapy; Z3A.09 9 weeks gestation of pregnancy
CPT/HCPCS: 36415; 76801; 80053; 81001; 81025; 84702; 85025

== ENCOUNTER 2020-07-16 17:53 | Outpatient (CLI) | payer MEDICAID, OTHER | END 2020-07-16 20:26 | disposition home or self-care (01) | LOC: APU 17:53 → TRG 17:53 | PROVIDERS: ATTEND Obstetrics & Gynecology | DX: O47.1 False labor at or after 37 completed weeks of gestation (principal); Z3A.38 38 weeks gestation of pregnancy | CPT/HCPCS: 59025 ==

== ENCOUNTER 2020-07-24 06:23 | Inpatient (IN) | payer OTHER ==
[2020-07-24] MEDS ORDERED: ePHEDrine SULFATE 50 MG/1 ML INJ IV PRN (07:28)
[2020-07-24] MEDS ORDERED: OXYTOCIN 20 UNIT/1000ML DRIP 20 UNITS/1,000 ML BAG IV SCH ×2 (08:00→12:55)
[2020-07-24] MEDS ORDERED: ACETAMINOPHEN 325 MG TAB PO PRN ×2 (08:00→12:55)
[2020-07-24] MEDS ORDERED: LIDOCAINE (2%) 20 MG/1 ML VIAL 20 ML MDV INFILTRATI NR (08:00)
[2020-07-24] MEDS ORDERED: OXYTOCIN DRIP 30 UNITS/500 ML BAG IV SCH (08:00)
[2020-07-24] MEDS ORDERED: LACTATED RINGERS 1,000 ML IV SCH (08:00)
[2020-07-24] MEDS ORDERED: AMPICILLIN/NS 2 GM/100 ML 2 GM/100 ML BAG IV ONE (08:00)
[2020-07-24] MEDS ORDERED: TERBUTALINE 1 MG/1 ML INJ SUB-Q PRN (08:00)
[2020-07-24 08:31] LABS: Hematocrit 29.9 % (30.3-42.9); Hemoglobin 9.4 gm/dl (10.1-14.3); Mean Corpuscular HGB Conc 31 % (30-34); Mean Corpuscular Volume 73 fl (79-97); Platelet Count 287 K/mm3 (140-440); Red Cell Distribution Width 19.7 % (13.2-15.2)
[2020-07-24] MEDS ORDERED: OXYTOCIN 10 UNIT/1 ML INJ ONE (09:02)
[2020-07-24] MEDS ORDERED: OXYTOCIN 10 UNIT/1 ML INJ IM NR (09:24)
--- NOTE | 2020-07-24 09:28 | Procedure Note ---
OB Delivery Note - Delivery Date of Delivery: 07/24/20 Surgeon: SHIRAZ ADAMS Estimated blood loss: other (400 mL) - Vaginal Delivery presentation: vertex Delivery position: OA Intrapartum events: no care, precipitous labor- <3hr, uterine atony Delivery induction: none Delivery monitor: external FHT, external uterine Route of delivery: Delivery placenta: spontaneous Delivery cord: nuchal cord (x1, loose, delivered through ) Episiotomy: none Delivery laceration: 2nd degree (pt declined repair ), other (Bilateral periurethral ) Anesthesia: none Delivery comments: Pt progressed to complete/complete/+2 while I was walking on the unit and was urgently called into LDR. Head deliverd in CURT position. Nuchal cord delivered through, quickly followed by shoulders and body. placed on maternal abdomen and bulb suctioned. Cord clamped and cut. Cord blood collected. Placenta delivered spontaneously. No IV Pitocin available. Pitocin 10 u IM administered. Vagina and perineum explored. Second degree perineal laceration noted- pt declines repair, well approximating. Bilateral periurethrals noted to be hemostatic. EBL 400 mL. - Infant A at 1 minute: 8 at 5 minutes: 9 Gender: Male (3278g (7lb 3.6 oz) @ 0856 am)
[2020-07-24] MEDS ORDERED: fentaNYL 100 MCG/2 ML INJ IV SCH (09:30)
[2020-07-24] MEDS ORDERED: AMMONIA INHALANT IH ONE (11:05)
[2020-07-24] MEDS ORDERED: ONDANSETRON 4 MG/2 ML INJ IV PRN (12:55)
[2020-07-24] MEDS ORDERED: LANOLIN/ZINC/DIMETHICONE (LANSINOH) 7 GM TP PRN ×2 (12:55)
[2020-07-24] MEDS ORDERED: WITCH HAZEL/ GLYCERIN PAD TP PRN (12:55)
[2020-07-24] MEDS ORDERED: diphenhydrAMINE 25 MG CAP PO PRN (12:55)
[2020-07-24] MEDS ORDERED: MAGNESIUM HYDROXIDE (MOM) ORAL LIQD UDC PO PRN (12:55)
[2020-07-24] MEDS ORDERED: PROMETHAZINE 25 MG TAB PO PRN (12:55)
[2020-07-24] MEDS ORDERED: BENZOCAINE/MENTHOL 20/0.5% TOP SPRAY 56 GM TP PRN (12:55)
[2020-07-24] MEDS ORDERED: PROMETHAZINE 25 MG RECT SUPP PR PRN (12:55)
[2020-07-24] MEDS: PRENATAL VIT27-FE FUMARATE-FOLIC ACID VIT TAB PO SCH (13:09)
[2020-07-24] MEDS: HYDROcodone/ACETAMINOPHEN 5-325 MG TAB PO PRN ×2 (13:09→21:47)
[2020-07-24] MEDS: FERROUS SULFATE 325 MG TAB PO SCH ×2 (13:10→21:47)
[2020-07-24 13:13] LABS: Amphetamine Screen,Urine Negative; Benzodiazepines Screen,Urine Negative; Cannabinoid Screen,Urine Negative; Cocaine Screen,Urine Negative; Methadone Screen,Urine Negative; Opiate Screen,Urine Negative
[2020-07-24] MEDS: IBUPROFEN 600 MG TAB PO SCH (17:30)
[2020-07-24] MEDS ORDERED: MINERAL OIL 30 ML ORAL LIQD PO PRN (22:00)
[2020-07-25 00:15] LABS: Hematocrit 28.6 % (30.3-42.9); Hemoglobin 8.7 gm/dl (10.1-14.3)
[2020-07-25] MEDS: IBUPROFEN 600 MG TAB PO SCH ×3 (05:09→21:34)
[2020-07-25] MEDS ORDERED: DIPHtheria,PERTUSSIS(ACELL),TETANUS VACCINE/PF 0.5 ML VIAL IM ONE (09:36)
[2020-07-25] MEDS ORDERED: MEASLES, MUMPS & RUBELLA 12,500 UNIT/0.5 ML VACCINE SUB-Q ONE (09:36)
[2020-07-25] MEDS: PRENATAL VIT27-FE FUMARATE-FOLIC ACID VIT TAB PO SCH (12:05)
[2020-07-25] MEDS: FERROUS SULFATE 325 MG TAB PO SCH (12:05)
[2020-07-26] MEDS: HYDROcodone/ACETAMINOPHEN 5-325 MG TAB PO PRN (09:05)
--- NOTE | 2020-07-26 10:09 | History and Physical Report ---
History of Present Illness Date of examination: 07/24/20 Date of admission: 07/24/20 06:27 Chief complaint: My water broke History of present illness: Patient is a 29-year-old 6 para 4 SAB 1 living child 2, who presents at 39-5/7 weeks with complaint of rupture of membranes. Patient received no care. She states that she got her due date and office visit at a "clinic" early in the . Patient states that she did not have insurance and or transportation to get her visits. However, patient has a history of noncompliance as she was noncompliant with a in 2019 as well, which she received only minimal care. Patient has a history of a 24-week delivery as well as history of having a child killed by a dog at 5 months old. She currently has 2 living children. The patient was admitted and progressed rapidly with her labor. OB panel will be obtained. Past History Past Medical History: no pertinent history Past Surgical History: no surgical history Social history: single - Obstetrical History Expected Date of Delivery: 07/26/20 Actual Gestation: 40 Week(s) 0 Day(s) : 6 Para: 4 Hx # Term Pregnancies: 3 Number of Pregnancies: 1 Spontaneous Abortions: 1 Number of Living Children: 2 Medications and Allergies Allergies Allergy/AdvReac Type Severity Reaction Status Date / Time No Known Allergies Allergy Verified 08/27/18 13:28 Home Medications Medication Instructions Recorded Confirmed Last Taken Type Azelastine 0.1% (Nf) [Astelin (Nf)] 137 mcg NS QDAY PRN #1 bottle 02/27/17 03/29/19 Unknown Rx Fluticasone [Flonase] 1 spray NS QDAY PRN #1 bottle 02/27/17 03/29/19 Unknown Rx Loratadine (Nf) [Claritin] 10 mg PO DAILY #30 tablet 02/27/17 03/29/19 Unknown Rx Naproxen [Naproxen TAB] 250 mg PO BID PRN #20 tablet 02/27/17 03/29/19 Unknown Rx guaiFENesin DM [Robitussin Dm] 10 ml PO Q6HR PRN #1 bottle 02/27/17 03/29/19 Unknown Rx Doxylamine Succinate/Vit B6 1 each PO QHS PRN #30 tablet. 04/17/17 03/29/19 Unknown Rx [Diclegis Dr 10-10 mg Tablet] Vit Calc,Iron,Folic 1 each PO QDAY #30 tablet 04/17/17 03/29/19 03/27/19 Rx [ Vitamins] diphenhydrAMINE [Benadryl CAP] 25 mg PO Q6HR PRN #15 tab 01/12/18 03/29/19 Unknown Rx predniSONE [Deltasone] 40 mg PO QDAY #6 tab 01/12/18 03/29/19 Unknown Rx 21/Iron Fu/Folic Acid 1 each PO DAILY #30 tablet 08/14/18 03/29/19 03/27/19 Rx [ Complete Caplet] Ibuprofen [Motrin 800 MG tab] 800 mg PO Q8HR PRN #30 tablet 03/30/19 Unknown Rx Active Meds: Active Medications Acetaminophen (Tylenol) 650 mg PO Q4H PRN PRN Reason: Pain MILD(1-3)/Fever >100.5/ALMAZAN Acetaminophen/Hydrocodone Bitart ([place] 5/325) 2 each PO Q6H PRN PRN Reason: Pain, Moderate (4-6) Last Admin: 07/26/20 09:05 Dose: 2 each Documented by: Benzocaine/Menthol (Dermoplast) 1 spray TP PRN PRN PRN Reason: Episiotomy Pain Last Admin: 07/24/20 13:09 Dose: 1 spray Documented by: Bisacodyl (Dulcolax) 10 mg [place] BID PRN PRN Reason: Constipation Diphenhydramine HCl (Benadryl) 25 mg PO Q6H PRN PRN Reason: Itching Ferrous Sulfate (Feosol) 325 mg PO BID [facility] Last Admin: 07/25/20 12:05 Dose: 325 mg Documented by: Oxytocin/Sodium Chloride (Pitocin/Ns 20 Unit/1000ml Drip) 20 units in 1,000 mls @ 250 mls/hr IV DIRECT [facility] Ibuprofen (Ibuprofen) 600 mg PO Q6H [facility] Last Admin: 07/25/20 21:34 Dose: 600 mg Documented by: Magnesium Hydroxide (Milk Of Magnesia) 30 ml PO HS PRN PRN Reason: Constipation Multi-Ingredient Ointment (Lansinoh) 1 applic TP PRN PRN PRN Reason: Sore Nipples Multi-Ingredient Ointment (Lansinoh) 1 applic TP PRN PRN PRN Reason: dryness/cracking Multivitamins/Iron/Calcium ( Vitamin) 1 each PO QDAY NIEVES Last Admin: 07/25/20 12:05 Dose: 1 each Documented by: Ondansetron HCl (Zofran) 4 mg IV Q8H PRN PRN Reason: Nausea And Vomiting Promethazine HCl (Phenergan) 25 mg [place] Q6H PRN PRN Reason: Nausea And Vomiting Promethazine HCl (Phenergan) 25 mg PO Q6H PRN PRN Reason: Nausea And Vomiting Sodium Chloride (Sodium Chloride Flush Syringe 10 Ml) 10 ml IV PRN NR Stop: 07/27/20 12:54 Witch Aissatou/Glycerin (Tucks Pad) 1 each TP PRN PRN PRN Reason: Hemorrhoid/cleansing/soothing Last Admin: 07/24/20 13:08 Dose: 1 each Documented by: Review of Systems All systems: negative Constitutional: weight gain Genitourinary: leakage of fluid, contractions - Vital Signs Vital signs: Vital Signs Pulse BP 88 110/65 07/24/20 07:05 07/24/20 07:05 Temp Pulse Resp BP Pulse Ox 98.2 F 64 18 108/69 98 07/26/20 07:47 07/26/20 07:47 07/26/20 07:47 07/26/20 07:47 07/26/20 07:47 - Physical Exam Breasts: Positive: deferred Cardiovascular: Regular rate, Normal S1, Normal S2 Lungs: Positive: Clear to auscultation, Normal air movement Abdomen: Positive: normal appearance, soft, normal bowel sounds. Negative: distention, tenderness Genitourinary (Female): Positive: normal external genitalia, normal perenium Vulva: both: normal Vagina: Positive: normal moisture. Negative: discharge Cervix: Negative: lesion, discharge Uterus: Positive: normal size, normal contour Adnexa: both: normal Anus/Rectum: Positive: normal perianal skin, heme negative. Negative: rectal mass, hemorrhoids Extremities: Deep Tendon Reflex Grade: Normal +2 - Obstetrical FHR: auscultation normal Cervical Dilatation: 4 Cervical Effacement Percentage: 80 station: -1 Uterine Contraction Pattern: Regular Results Result Diagrams: 07/24/20 23:34 All other labs normal. Assessment and Plan IUP at 39 weeks with no care. Admit for labor anticipate . Will attempt to treat for GBS unknown. Will obtain OB panel.
--- NOTE | 2020-07-26 10:46 | Progress Note ---
Assessment and Plan PPD 1 s/p with no care. WIll plan for discharge on tomorrow due to mandatory 48 hour hold for GBS unknown. Subjective - Subjective Date of service: 07/25/20 Interval history: Patient is a 29-year-old 6 para 4 SAB 1 living child 2, who presents at 39-5/7 weeks with complaint of rupture of membranes. Patient received no care. She states that she got her due date and office visit at a "clinic" early in the . Patient states that she did not have insurance and or transportation to get her visits. However, patient has a history of noncompliance as she was noncompliant with a in 2019 as well, which she received only minimal care. Patient has a history of a 24-week delivery as well as history of having a child killed by a dog at 5 months old. She currently has 2 living children. The patient was admitted and progressed rapidly with her labor. OB panel will be obtained. Patient reports: appetite normal, voiding normally, ambulating normally : doing well Objective - Vital Signs Latest vital signs: Vital Signs Temp Pulse Resp BP BP Pulse Ox 07/26/20 07:47 98.2 F 64 18 108/69 98 07/25/20 15:40 97.9 F 50 L 20 104/70 Intake and Output 07/25/20 07/26/20 07/26/20 22:59 06:59 14:59 Intake Total 640 360 Balance 640 360 Intake: Oral 640 120 Intake, Free Water 240 Other: Total, Intake Amount 320 120 # Voids Void 1 1 - Exam Breasts: Present: deferred Cardiovascular: Present: Regular rate, Normal S1, Normal S2 Lungs: Present: Clear to auscultation, Normal air movement Abdomen: Present: normal appearance, soft, normal bowel sounds Uterus: Present: normal, firm Extremities: Present: normal
--- NOTE | 2020-07-26 11:03 | Discharge Summary ---
Providers - Providers Date of Admission: 07/24/20 06:27 Date of discharge: 07/26/20 Attending physician: EDNA ZELAYA Primary care physician: EDNA ZELAYA Hospitalization Reason for admission: active labor, rupture of membranes Delivery: Episiotomy: none Laceration: 2nd degree (patient refuses repair) Discharge diagnosis: IUP at term delivered [place] baby: male Hospital course: unremarkable Condition at discharge: Good Disposition: DC-01 TO HOME OR SELFCARE - Discharge Diagnoses (1) (spontaneous vaginal delivery) Status: Acute (2) No care in current Status: Acute (3) 39 weeks gestation of Status: Acute Plan - Discharge Medications Prescriptions: Ibuprofen [Motrin 600 MG tab] 600 mg PO Q6H #40 tablet 21/Iron Fu/Folic Acid [ Complete Caplet] 1 each PO DAILY #30 tablet - Provider Discharge Summary Activity: routine, no sex for 6 weeks, no heavy lifting 4 weeks, no strenuous exercise Diet: routine Instructions: routine Additional instructions: [] Smoking cessation referral if applicable(refer to patient education folder for contact #) [] Refer to [facility]'s [facility] Booklet Call your doctor immediately for: * Fever > 100.5 * Heavy vaginal bleeding ( >1 pad per hour) * Severe persistent headache * Shortness of breath * Reddened, hot, painful area to leg or breast * Drainage or odor from incision. * Keep incision clean and dry at all times and follow doctor's instructions regarding bathing/showering - Follow up plan Follow up: EDNA ZELAYA MD [Primary Care Provider] - 6 Weeks
[2020-07-26] MEDS: IBUPROFEN 600 MG TAB PO SCH (12:50)
[2020-07-26 16:52] VITALS: BP 115/72
== END 2020-07-26 17:00 | disposition home or self-care (01) | DRG 807 ==
LOC: TRG 06:23 → APU 06:24 → LD 06:27 → OBSVTOIN 06:27 → LD 08:29 → OB 12:01
PROVIDERS: ADMIT Obstetrics & Gynecology; ATTEND Obstetrics & Gynecology
PROC: 10E0XZZ Delivery of Products of Conception, External Approach (ICD-10-PCS; principal; 2020-07-24)
PROC: 3E0134Z Introduction of Serum, Toxoid and Vaccine into Subcutaneous Tissue, Percutaneous Approach (ICD-10-PCS; 2020-07-25)
DX: O62.3 Precipitate labor (principal); Z37.0 Single live birth; O69.81X0 Labor and delivery complicated by cord around neck, without compression, not applicable or unspecified; O62.2 Other uterine inertia; O70.1 Second degree perineal laceration during delivery; O71.82 Other specified trauma to perineum and vulva; Z3A.39 39 weeks gestation of pregnancy; Z23 Encounter for immunization
CPT/HCPCS: 36415; 80307; 85014; 85018; 85027; 86592; 86706; 86762; 86850; 86900; 86901; 87806; 88307; 96374; G0378; J0290; J2590; J3010; J7120